=== PATIENT | male | born 1970 | race Asian ===

== ENCOUNTER → 2016-05-21 | Outpatient (CLI) | payer BC ==
[~2016-05-21] MED LIST: AMLO-110 PO; ASCO500C43 PO; ASPI81TA28 PO; ATOR-24 PO; CARV3.122 PO; DCL/500 PO; FERR1TAB23 PO; INSDGIPEN SC; LEVO150T9 PO; LEVO175T3 PO; LOSA1TAB PO; MULT-506 PO; NVLGI/PEN SQ; PREG1CAP28 PO; PRT/20 PO; [UNRECOGNIZED DRUG - CODE] PO
--- NOTE | 2016-05-21 10:18 | DIAGNOSTIC IMAGING REPORT ---
ULTRASOUND TESTES AND SCROTUM CLINICAL HISTORY: Unspecified testicular lesion. COMPARISON STUDY: No priors. TECHNIQUE: Real-time, grayscale, and color Doppler sonography of the testes and scrotum is performed. Images are reviewed in the transverse and longitudinal planes. FINDINGS: The testes are atrophic and heterogeneous in echotexture. The right testis measures 1.9 x 1.1 x 1.7 cm and the left testis measures 2.1 x 1.0 x 1.7 cm. A 3 mm cystic focus is seen either within the right testis. No intratesticular mass is seen. Testicular blood flow is normal and symmetric. Normal Doppler waveforms are identified in both testes. The epididymal heads appear prominent. The right epididymal head measures 0.7 cm in length and the left epididymal head measures 0.8 cm in length. There is a 2 mm right epididymal head cyst. No varicocele or hydrocele is seen. IMPRESSION: 1. The testes appear atrophic and heterogeneous. 2. No testicular mass lesion is seen. A 3 mm low suspicion cystic focus is identified within the right testis. A precautionary 6 month follow-up examination is recommended for reassessment. Electronically signed by: Rafiq Davila M.D. 05/21/2016 10:16 AM Dictated Date/Time: 05/21/2016 10:11 AM
== END | disposition home or self-care (01) ==
LOC: C.ULTR 09:23
PROVIDERS: ATTEND Internal Medicine
DX: N50.9 Disorder of male genital organs, unspecified (principal)

== ENCOUNTER 2016-10-27 23:39 | Emergency (ER) | payer BC ==
[~2016-10-27] VITALS: Ht 160 cm; Wt 57.0 kg
[2016-10-27 23:46] VITALS: TEMP 36.6; Ht 160 cm; Wt 57.0 kg
[2016-10-28] MEDS ORDERED: ACETAMINOPHEN 500 MG TAB PO STA (00:45)
[2016-10-28] MEDS ORDERED: CARV3.122 PO (00:56)
[2016-10-28] MEDS ORDERED: [UNRECOGNIZED DRUG - CODE] PO (00:56)
[2016-10-28] MEDS ORDERED: ATOR-24 PO (00:56)
[2016-10-28] MEDS ORDERED: INSDGIPEN SC (00:56)
[2016-10-28] MEDS ORDERED: LOSA1TAB PO (00:56)
[2016-10-28] MEDS ORDERED: AMLO-110 PO (00:56)
[2016-10-28] MEDS ORDERED: PREG1CAP28 PO (00:56)
[2016-10-28] MEDS ORDERED: PRT/20 PO (00:56)
[2016-10-28] MEDS ORDERED: FERR1TAB23 PO (00:57)
[2016-10-28] MEDS ORDERED: MULT-506 PO (00:57)
[2016-10-28] MEDS ORDERED: ASCO500C43 PO (00:57)
[2016-10-28] MEDS ORDERED: ASPI81TA28 PO (00:57)
[2016-10-28 01:08] VITALS: BP 156/94; PULSE 68; O2SAT 99
[2016-10-28] MEDS ORDERED: DCL/500 PO (01:21)
[2016-10-28] MEDS ORDERED: NVLGI/PEN SQ (01:21)
[2016-10-28] MEDS ORDERED: LEVO150T9 PO (01:22)
[2016-10-28] MEDS ORDERED: LEVO175T3 PO (01:22)
--- NOTE | 2016-10-28 01:49 | EMERGENCY ROOM VISIT NOTE ---
History Report prepared by Nasiriballison: Cruzito Briceno Under the Supervision of: Dr. Rachel Pritchett M.D. First contact with patient: 23:46 Chief Complaint: FALL Stated Complaint: FALL/RIB PAIN History of Present Illness The patient is a 46 year old male who presents to the Emergency Room with complaints of constant left rib pain s/p fall occurring shortly prior to arrival. He states that he slipped on a stair and fell backwards onto a concrete surface. He states that he landed on his left side and left elbow. The patient did not hit his head or lose consciousness. He rates his current pain as a 5/10 in severity. His pain is worsened with breathing and movement. The patient denies any shortness of breath, nausea, vomiting, chest pain, abdominal pain, or palpitations. He is on aspirin, but denies any other blood thinner use. He has a pacemaker in his left lower chest and is unsure if he hit his area during the fall. Source of History: patient Onset: Shortly prior to arrival Position: other (left rib) Symptom Intensity: 5/10 Timing: constant Modifying Factors (Worsening): breathing, movement Associated Symptoms: No chest pain, No SOB, No nausea, No vomiting, No abdominal pain Review of Systems See HPI for pertinent positives & negatives. A total of 10 systems reviewed and were otherwise negative. Past Medical & Surgical Medical Problems: (1) Bone cancer (2) Endocarditis (3) Renal disease (4) Thyroid cancer (5) Type II diabetes mellitus Surgical Problems: (1) Aortic valve replaced (2) H/O mitral valve replacement Family History No pertinent family history stated. Social History Smoking Status: Never Smoker Smokeless Tobacco Use: No Alcohol Use: none Drug Use: none Marital Status: Housing Status: lives with family Occupation Status: employed Current/Historical Medications Scheduled Amlodipine (Norvasc), 5 MG PO DAILY Ascorbic Acid (Vitamin C 500 mg), 500 MG PO DAILY Aspirin (Aspirin Ec), 81 MG PO DAILY Atorvastatin (Lipitor), 40 MG PO DAILY Carvedilol (Coreg), 3.125 MG PO BID Dicloxacillin Sodium (Dynapen), 500 MG PO BID Ferrous Sulfate (Iron), 325 MG PO DAILY Insulin Aspart (Novolog Flexpen), UNITS SQ AC Insulin Glargine (Lantus Solostar), 1 UNIT SC HS Levothyroxine Sodium (Levothyroxine Sodium), 150 MCG PO Q2D Levothyroxine Sodium (Levothyroxine Sodium), 175 MCG PO Q2D Losartan Potassium (Cozaar), 25 MG PO BID Multivitamin (Multivitamin), 1 TAB PO DAILY Pantoprazole (Protonix), 20 MG PO DAILY Pregabalin (Lyrica), 75 MG PO BID Sevelamer Hydroch (Renagel), 400 MG PO TIDM Allergies Coded Allergies: Cefazolin (Verified Allergy, Unknown, HIVES, 10/28/16) Cephalexin (Verified Allergy, Unknown, GI SYMPTOMS, 10/28/16) Physical Exam Vital Signs Date Time Temp Pulse Resp B/P (MAP) Pulse Ox O2 Delivery O2 Flow Rate FiO2 10/28/16 01:08 68 20 156/94 99 Room Air 10/27/16 23:46 36.6 69 20 178/85 100 Room Air Physical Exam Vital signs reviewed. General: Chronically ill-appearing male, in no significant distress. HEENT: No scleral icterus, PERRLA, neck supple. Atraumatic. Cardiovascular: Regular rate and rhythm, no extra sounds. Pulmonary: Clear to auscultation bilaterally, normal work of breathing. Abdomen: Soft, mild LUQ abdominal tenderness, nondistended, positive bowel sounds. Musculoskeletal: No peripheral edema. Tender over the left ribs. Splinting with deep inspiration. Small ecchymotic area to the left upper chest along the mid- axillary line. Neurologic: Patient awake alert and oriented x 3 Skin: Warm, dry, no rash Medical Decision & Procedures ER Provider Diagnostic Interpretation: US results per statrad and my review. US OTHER - limited - luq: Limited imaging of the left hemiabdomen secondary to bowel gas and rib shadowing The spleen measures up to 8.7 cm. No splenic injury identified. The left kidney measures up to 9 cm. No kidney injury identified. Chest/Rib X-ray interpreted by me: No pneumothorax. Pacemaker in place. No obvious displaced rib fracture identified. Medications Administered Medications (Trade) Dose Ordered Sig/Moo Route Start Time Stop Time Status Last Admin Dose Admin Acetaminophen (Tylenol Tab) 1,000 mg NOW STAT PO 10/28/16 00:45 10/28/16 00:47 DC 10/28/16 00:50 1,000 MG ED Course 2351: Past medical records reviewed. The patient was evaluated in room A3. A complete history and physical examination was performed. 0045: Ordered Tylenol Tab 1000 mg PO. 0145: Upon reevaluation, the patient appeared to have improvement of her symptoms. I discussed findings with her. She verbalized agreement of the treatment plan. The patient was discharged home. Medical Decision DDx: Intracranial injury, cervical spine injury, intrathoracic injury, intra- abdominal injury, musculoskeletal injury. This pt was evaluated and appeared to be in no distress. Pt declined pain medication initially. CXR was performed and to my interpretation is negative. US of LUQ is negative for FF. Pt examines as a rib contusion/fracture. He has multiple medical problems. Patient was given Tylenol 1000 mg orally for continued pain. He was discharged with an incentive spirometer. He will follow -up with his physician this week for reevaluation. Patient was advised to return to the ER for worsening of symptoms or any medical concerns. Medication Reconcilliation Current Medication List: was personally reviewed by me Blood Pressure Screening Patient's blood pressure: Elevated blood pressure Blood pressure disposition: Elevated BP felt to be situational, Referred to PCP Impression Primary Impression: Fall (on) (from) other stairs and steps, initial encounter Additional Impression: Rib pain on left side Scribe Attestation The scribe's documentation has been prepared under my direction and personally reviewed by me in its entirety. I confirm that the note above accurately reflects all work, treatment, procedures, and medical decision making performed by me. Departure Information Dispostion Home / Self-Care Referrals Berny Shrestha MD (PCP) Forms HOME CARE DOCUMENTATION FORM, IMPORTANT VISIT INFORMATION Patient Instructions My [facility] Additional Instructions Diagnosis: Rib pain, contusion versus nondisplaced fracture Tylenol 1000 mg every 6 hours as needed for pain. Incentive spirometer 10 times every hour while awake. Follow-up with your physician this week for reevaluation. Return to the ER for uncontrolled pain, fever, shortness of breath or any medical concerns. Problem Qualifiers
--- NOTE | 2016-10-28 07:10 | DIAGNOSTIC IMAGING REPORT ---
LEFT RIBS UNILATERAL WITH PA CHEST CLINICAL HISTORY: 46 years-old Male presenting with L rib pain after fall. TECHNIQUE: PA view of the chest and frontal and oblique views of the left ribs were obtained. COMPARISON: None. FINDINGS: Median sternotomy wires and pacer with epicardial leads noted. Left lung and pleural space clear. No displaced rib fracture. Left upper quadrant normal. IMPRESSION: No displaced rib fracture. Electronically signed by: Cameron Putnam M.D. 10/28/2016 7:09 AM Dictated Date/Time: 10/28/2016 7:07 AM
--- NOTE | 2016-10-28 07:13 | DIAGNOSTIC IMAGING REPORT ---
ABDOMEN LIMITED (US) CLINICAL HISTORY: Left upper quadrant pain fall, splenic/ renal bleeding COMPARISON STUDY: None. FINDINGS: Real-time sonographic imaging of the left upper quadrant was performed. The visualized kidney and spleen appear unremarkable. No splenic fluid collections. Of note, the spleen and kidney are slightly obscured by overlying bowel gas and ribs. No fluid collection within the left upper quadrant. No masses. IMPRESSION: No sonographic abnormality within the left upper quadrant. Electronically signed by: Greyson Castillo M.D. 10/28/2016 7:12 AM Dictated Date/Time: 10/28/2016 7:11 AM
== END 2016-10-28 01:51 | disposition home or self-care (01) ==
LOC: EDBD 23:39 → C.EDA 23:41
DX: R07.81 Pleurodynia (principal); W10.8XXA Fall (on) (from) other stairs and steps, initial encounter; E11.9 Type 2 diabetes mellitus without complications; N18.9 Chronic kidney disease, unspecified; I38 Endocarditis, valve unspecified; Z95.2 Presence of prosthetic heart valve; Z85.850 Personal history of malignant neoplasm of thyroid; Z85.830 Personal history of malignant neoplasm of bone; Z79.4 Long term (current) use of insulin; Z79.82 Long term (current) use of aspirin; Z79.899 Other long term (current) drug therapy; Z88.8 Allergy status to other drugs, medicaments and biological substances

== ENCOUNTER 2017-06-18 21:52 | Emergency (ER) | payer BC, OTHER ==
[~2017-06-18] VITALS: Ht 160 cm; Wt 57.0 kg
[2017-06-18 21:55] VITALS: TEMP 36.7; Ht 160 cm; Wt 57.0 kg
[2017-06-18] MEDS ORDERED: KETOROLAC TROMETHAMINE 30 MG/ML VIAL IV STA (22:21)
[2017-06-18] MEDS ORDERED: SODIUM CHLORIDE 0.9% 1000ML 1,000 ML IV ONE (22:30)
--- NOTE | 2017-06-18 22:58 | DIAGNOSTIC IMAGING REPORT ---
PELVIS 1 OR 2 VIEW ROUTINE, R FEMUR 2 VIEWS ROUTINE HISTORY: 47 years-old Male PELVIS AND RT HIP PAIN acute pelvis or right hip pain COMPARISON: Right knee radiographs 01/10/2016 TECHNIQUE: AP view of the pelvis with 2 views of the right femur FINDINGS: PELVIS: Mild degenerative changes about the left femoral acetabular joint. No pelvic fracture identified. Moderate degenerative changes about the pubic symphysis. Prosthetic right femur with prosthetic right acetabular component also noted. Surgical clips project over the right inguinal region. Dystrophic calcifications are seen medial to the right femur. No acute fracture, dislocation or evidence of hardware complication. Vascular calcifications of the central pelvis. Moderate stool volume of the imaged right hemicolon. FEMUR: Prosthetic femur redemonstrated with apparent mild muscular atrophy about the right thigh. Dystrophic calcifications are noted within the medial right upper thigh. Surgical clips are seen about the right thigh with extensive peripheral vascular disease.] Arthroplasty with partially imaged tibial stem. IMPRESSION: 1. No acute fracture or dislocation. 2. Right hip arthroplasty with prosthetic right femur and right knee arthroplasty. 3. Suggested muscular atrophy about the right thigh with multiple surgical clips and dystrophic calcifications. 4. Peripheral vascular disease. The above report was generated using voice recognition software. It may contain grammatical, syntax or spelling errors. Electronically signed by: Cheko Causey M.D. 06/18/2017 10:56 PM Dictated Date/Time: 06/18/2017 10:53 PM
[2017-06-18 23:10] LABS: BASO % 0.3 %; BASO ABS # 0.02 K/uL (0-0.2); EOS % 4.9 %; EOS ABS # 0.29 K/uL (0-0.5); HEMATOCRIT 23.1 % (42-52); HEMOGLOBIN 8.3 g/dL (14.0-18.0); IG# 0.01 K/uL (0.00-0.02); LYMPH % 6.5 %; LYMPH ABS # 0.38 K/uL (1.2-3.4); MEAN CELL VOLUME 88.5 fL (80-100); MEAN CORPUSCULAR HEMOGLOBIN 31.8 pg (25-34); MEAN CORPUSCULAR HGB CONC 35.9 g/dl (32-36); MEAN PLATELET VOLUME 9.9 fL (7.4-10.4); MONO % 5.8 %; MONO ABS # 0.34 K/uL (0.11-0.59); NEUT % 82.3 %; NEUT ABS # 4.85 K/uL (1.4-6.5); PLATELET COUNT 164 K/uL (130-400); RED CELL DISTRIBUTION WIDTH CV 13.3 % (11.5-14.5); RED CELL DISTRIBUTION WIDTH SD 43.4 fL (36.4-46.3); WHITE BLOOD COUNT 5.89 K/uL (4.8-10.8)
[2017-06-18 23:20] LABS: PTT PATIENT 33.6 SECONDS (21.0-31.0)
[2017-06-18 23:30] LABS: ALBUMIN 3.3 gm/dl (3.4-5.0); CALCIUM 8.1 mg/dl (8.5-10.1); CREATININE 4.03 mg/dl (0.60-1.40); POTASSIUM 3.5 mmol/L (3.5-5.1)
[2017-06-18 23:33] LABS: TOTAL PROTEIN 6.3 gm/dl (6.4-8.2)
[2017-06-18 23:50] VITALS: BP 152/83; PULSE 81; O2SAT 97
--- NOTE | 2017-06-19 21:51 | EMERGENCY ROOM VISIT NOTE ---
History First contact with patient: 22:11 Chief Complaint: HIP PAIN Stated Complaint: RT HIP PAIN History of Present Illness The patient is a 47 year old male who presents to the Emergency Room with complaints of right hip pain worsening over the past 1 day. 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 The patient has had 2 hip replacements as well as 14 or 15 "clean out" procedures following infection. The patient has been doing well for the past several years. None of these procedures have been performed in the [place] area. The patient has evidently seen Dr. Florian locally to establish, but not for any procedures. The patient does not report having fever or chills. He has been able to ambulate, but this does cause increased pain. He takes Tylenol for pain, and this seems to have helped. He rates his discomfort a 1/10 at rest and 5/10 with walking. No injury or trauma is known. No redness in the area is reported. Review of Systems More than 10 systems were reviewed and otherwise negative with the exception of history of present illness. Past Medical/Surgical History Medical Problems: (1) Bone cancer (2) Endocarditis (3) Renal disease (4) Thyroid cancer (5) Type II diabetes mellitus Surgical Problems: (1) Aortic valve replaced (2) H/O mitral valve replacement Family History No pertinent family history Social History Smoking Status: Never Smoker Alcohol Use: none Drug Use: none Marital Status: Housing Status: lives with family Occupation Status: employed Current/Historical Medications Scheduled Amlodipine (Norvasc), 5 MG PO DAILY Ascorbic Acid (Vitamin C 500 mg), 500 MG PO DAILY Aspirin (Aspirin Ec), 81 MG PO DAILY Atorvastatin (Lipitor), 40 MG PO DAILY Carvedilol (Coreg), 3.125 MG PO BID Dicloxacillin Sodium (Dynapen), 500 MG PO BID Ferrous Sulfate (Iron), 325 MG PO DAILY Insulin Aspart (Novolog Flexpen), UNITS SQ AC Insulin Glargine (Lantus Solostar), 2 UNIT SC HS Levothyroxine Sodium (Levothyroxine Sodium), 150 MCG PO Q2D Levothyroxine Sodium (Levothyroxine Sodium), 175 MCG PO Q2D Losartan Potassium (Cozaar), 25 MG PO BID Multivitamin (Multivitamin), 1 TAB PO DAILY Pantoprazole (Protonix), 20 MG PO DAILY Pregabalin (Lyrica), 75 MG PO BID Sevelamer Hydroch (Renagel), 400 MG PO TIDM Physical Exam Vital Signs Date Time Temp Pulse Resp B/P (MAP) Pulse Ox O2 Delivery O2 Flow Rate FiO2 06/18/17 23:50 81 18 152/83 97 Room Air 06/18/17 21:55 36.7 86 16 140/78 99 Room Air Physical Exam More than 10 systems were reviewed and otherwise negative with the exception of history of present illness. VITALS: Vitals are noted on the nurse's note and reviewed by myself. Vital signs stable. GENERAL: Well-developed, well-nourished, male, who is in no acute distress and resting comfortably. Patient is cooperative with the examination. NECK: Supple without nuchal rigidity. No lymphadenopathy. No thyromegaly. Cervical spine is nontender. HEART: Regular rate and rhythm with murmur LUNGS: Clear to auscultation bilaterally without wheezes, rales or rhonchi. No retractions or accessory muscle use. ABDOMEN: Positive normal bowel sounds x 4. Soft, nontender, without masses or organomegaly. No guarding or rebound tenderness. MUSCULOSKELETAL: No muscle atrophy, erythema, or edema noted. No reproducible tenderness is appreciated to the right hip. The patient has decreased range of motion to internal and external rotation. Elevating the right leg off the bed increases tenderness. Neurovascular status is intact distally. No tenderness of the back. No saddle paresthesias. NEURO: Patient was alert and oriented to person place and time. CN II through XII grossly intact. No focal neurological deficits. Medical Decision & Procedures ER Provider Diagnostic Interpretation: PELVIS 1 OR 2 VIEW ROUTINE, R FEMUR 2 VIEWS ROUTINE HISTORY: 47 years-old Male PELVIS AND RT HIP PAIN acute pelvis or right hip pain COMPARISON: Right knee radiographs 01/10/2016 TECHNIQUE: AP view of the pelvis with 2 views of the right femur FINDINGS: PELVIS: Mild degenerative changes about the left femoral acetabular joint. No pelvic fracture identified. Moderate degenerative changes about the pubic symphysis. Prosthetic right femur with prosthetic right acetabular component also noted. Surgical clips project over the right inguinal region. Dystrophic calcifications are seen medial to the right femur. No acute fracture, dislocation or evidence of hardware complication. Vascular calcifications of the central pelvis. Moderate stool volume of the imaged right hemicolon. FEMUR: Prosthetic femur redemonstrated with apparent mild muscular atrophy about the right thigh. Dystrophic calcifications are noted within the medial right upper thigh. Surgical clips are seen about the right thigh with extensive peripheral vascular disease.] Arthroplasty with partially imaged tibial stem. IMPRESSION: 1. No acute fracture or dislocation. 2. Right hip arthroplasty with prosthetic right femur and right knee arthroplasty. 3. Suggested muscular atrophy about the right thigh with multiple surgical clips and dystrophic calcifications. 4. Peripheral vascular disease. Laboratory Results 06/18/17 23:00 Red Blood Count 2.61, Mean Corpuscular Volume 88.5, Mean Corpuscular Hemoglobin 31.8, Mean Corpuscular Hemoglobin Concent 35.9, Mean Platelet Volume 9.9, Neutrophils (%) (Auto) 82.3, Lymphocytes (%) (Auto) 6.5, Monocytes (%) (Auto) 5.8, Eosinophils (%) (Auto) 4.9, Basophils (%) (Auto) 0.3, Neutrophils # (Auto) 4.85, Lymphocytes # (Auto) 0.38, Monocytes # (Auto) 0.34, Eosinophils # (Auto) 0.29, Basophils # (Auto) 0.02 06/18/17 23:00 Test 06/18/17 23:00 White Blood Count 5.89 K/uL (4.8-10.8) Red Blood Count 2.61 M/uL (4.7-6.1) Hemoglobin 8.3 g/dL (14.0-18.0) Hematocrit 23.1 % (42-52) Mean Corpuscular Volume 88.5 fL (80-100) Mean Corpuscular Hemoglobin 31.8 pg (25-34) Mean Corpuscular Hemoglobin Concent 35.9 g/dl (32-36) Platelet Count 164 K/uL (130-400) Mean Platelet Volume 9.9 fL (7.4-10.4) Neutrophils (%) (Auto) 82.3 % Lymphocytes (%) (Auto) 6.5 % Monocytes (%) (Auto) 5.8 % Eosinophils (%) (Auto) 4.9 % Basophils (%) (Auto) 0.3 % Neutrophils # (Auto) 4.85 K/uL (1.4-6.5) Lymphocytes # (Auto) 0.38 K/uL (1.2-3.4) Monocytes # (Auto) 0.34 K/uL (0.11-0.59) Eosinophils # (Auto) 0.29 K/uL (0-0.5) Basophils # (Auto) 0.02 K/uL (0-0.2) RDW Standard Deviation 43.4 fL (36.4-46.3) RDW Coefficient of Variation 13.3 % (11.5-14.5) Immature Granulocyte % (Auto) 0.2 % Immature Granulocyte # (Auto) 0.01 K/uL (0.00-0.02) Poikilocytosis PRESENT Erythrocyte Sedimentation Rate 23 mm/hr (0-14) Prothrombin Time 11.0 SECONDS (9.0-12.0) Prothromb Time International Ratio 1.0 (0.9-1.1) Activated Partial Thromboplast Time 33.6 SECONDS (21.0-31.0) Partial Thromboplastin Ratio 1.3 Anion Gap 11.0 mmol/L (3-11) Est Creatinine Clear Calc Drug Dose 18.4 ml/min Estimated GFR () 19.3 Estimated GFR (Non- 16.7 BUN/Creatinine Ratio 18.4 (10-20) Calcium Level 8.1 mg/dl (8.5-10.1) Total Bilirubin 0.3 mg/dl (0.2-1) Aspartate Amino Transf (AST/SGOT) 43 U/L (15-37) Alanine Aminotransferase (ALT/SGPT) 27 U/L (12-78) Alkaline Phosphatase 77 U/L (45-117) C-Reactive Protein 0.90 mg/dl (0-0.29) Total Protein 6.3 gm/dl (6.4-8.2) Albumin 3.3 gm/dl (3.4-5.0) Globulin 3.0 gm/dl (2.5-4.0) Albumin/Globulin Ratio 1.1 (0.9-2) ED Course Physical exam and history were performed. Nursing notes, EMR, and Medication List were personally reviewed. Patient appears to have concern for right hip infection as he is having increased pain the past 1-2 days. The patient does not have obvious signs of infection on examination, but has had multiple infections in the past. Blood work was drawn and labs are obtained. X-rays were performed. I offered the patient pain medication, but he declined. The patient's blood work is as above and was reviewed. He does not have a significantly elevated white blood cell count. 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 Evidently the patient has chronic kidney disease and will be starting Procrit in the near future. Additionally his creatinine is elevated, but this was also expected. The patient's inflammatory markers are only minimally elevated. X-rays are as above and reviewed by myself and radiology showing no acute process. He certainly has chronic findings consistent with past surgeries. I discussed options of care with the patient, and he is very comfortable with going home. This seems reasonable as I do not appreciate a distinct infection. He is able to ambulate, and is very comfortable with taking Tylenol at home. I do recommend that he follow-up with [facility] orthoped[facility] by telephone tomorrow to ensure improvement of symptoms. The patient was otherwise went back to the ER with any new, worsening, or concerning symptoms. The chart was completed utilizing [employer] Speech Voice Recognition Software. Grammatical errors, random word insertions, pronoun errors, and incomplete sentences are an occasional consequence of this system due to software limitations, ambient noise, and hardware issues. Any formal questions or concerns about the content, text, or information contained within the body of this dictation should be directly addressed to the provider for clarification. . Medical Decision Differential diagnosis includes, but is not limited to: Sprain, strain, fracture , dislocation, subluxation, contusion, chronic pain, infection, and others Impression Primary Impression: Right hip pain Departure Information Dispostion Home / Self-Care Condition GOOD Referrals Suman Florian M.D. Forms WORK / SCHOOL INSTRUCTIONS, HOME CARE DOCUMENTATION FORM, IMPORTANT VISIT INFORMATION Patient Instructions My [facility] Additional Instructions You were seen and evaluated today on an emergency basis only. This is not a substitute for, or an effort to provide, complete comprehensive medical care. It is not possible to recognize and treat all injuries or illnesses in a single emergency department visit. For this reason it is recommended that you followup with [facility] orthopedics, Dr. lForian's office, in the next 1-2 days for a recheck of your condition. Your hemoglobin today was 8.3. 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 Continue Tylenol 1000 mg every 6-8 hours as needed for pain control. Take every precaution to prevent falling Monitor for redness in the area or fever. If this occurs please return to the ER. You are welcome to return to the emergency department anytime with new, worsening, or concerning symptoms.
== END 2017-06-19 00:15 | disposition home or self-care (01) ==
LOC: C.EDB 21:54 → C.EDC 06-19 00:15
DX: M25.551 Pain in right hip (principal); Z96.641 Presence of right artificial hip joint; Z85.830 Personal history of malignant neoplasm of bone; Z85.850 Personal history of malignant neoplasm of thyroid; E11.9 Type 2 diabetes mellitus without complications; I38 Endocarditis, valve unspecified; Z79.82 Long term (current) use of aspirin; Z79.4 Long term (current) use of insulin; Z79.899 Other long term (current) drug therapy

== ENCOUNTER 2021-03-03 13:52 | Inpatient (IN) ==
--- NOTE | 2021-03-03 15:03 | Emergency Department Note ---
Impression & Plan Syncope, Acute hypotension, Peritoneal dialysis catheter in place, Hypokalemia ED Provider Note NAME: TROY TAY AGE: 51 SEX: M : 1970 ARRIVES VIA: Ambulance INFORMANT: Patient ED PROVIDER(S): Donny Stevenson DO CHIEF COMPLAINT: syncope x2-3 HPI: Patient is a 51-year-old male on PD dialysis with rectal cancer and spots within the lungs currently undergoing chemo presents to the ER for 2 episodes of syncope today and yesterday one episode of near syncope. He checked his blood pressure this morning and it was low in the 70s. Following the 2 episodes of syncope called EMS and was brought in. He denies any headache or change in vision. He did not fall or hit her head or neck. Denies any belly pain, nausea, vomiting, or diarrhea. No chest pain or shortness of breath. No other exacerbating or remitting factors. Last transfusion was about 1 to 2 weeks ago. ROS: See above HPI for pertinent positives & negatives. A total of 10 systems reviewed and were otherwise negative. PAST MEDICAL HISTORY:See Below PAST SURGICAL HISTORY:See Below FAMILY HISTORY:See Below SOCIAL HISTORY:See Below HOME MEDICATIONS:See Below ALLERGIES:See Below VITALS:See Below PHYSICAL EXAMINATION: GENERAL: Sitting up in bed, alert, chronically ill-appearing, disheveled EYE EXAM: normal conjunctiva. PERRL and EOM's grossly intact. OROPHARYNX: no exudate, no erythema, lips, buccal mucosa, and tongue normal and mucous membranes are moist NECK: supple, no nuchal rigidity, no adenopathy, non-tender LUNGS: Clear to auscultation. Normal chest wall mechanics HEART: no murmurs, S1 normal and S2 normal ABDOMEN: abdomen soft, non-tender, normo-active bowel sounds, no masses, no rebound or guarding. Catheter in place without any surrounding redness. UPPER EXTREMITIES: upper extremities are grossly normal. LOWER EXTREMITIES: Pitting edema in the bilateral lower extremities. Left is larger than right chronic per patient NEURO EXAM: Normal sensorium, cranial nerves II-XII grossly intact, normal speech, no gross weakness of arms, no gross weakness of legs. MEDICAL DECISION MAKING: Patient is a 51-year-old male with past medical history end-stage renal disease on dialysis with a pacemaker, rectal cancer currently receiving therapy the presents the ER for 2 syncopal episodes today. He denies any headache or change in vision. He does do PD nightly. IV was established blood was obtained. Labs show no significant leukocytosis. Mild anemia 10. Platelets were low at 61 consistent with previous at 91. BMP with mild hypokalemia at 3.1. Creatinine was elevated 8.8. Troponin was tactile at 0.6 which I favor secondary to chronic kidney disease. TSH was elevated and free T4 was normal. Patient was updated bedside. CT head was negative. Chest x-ray was not significant change from previous. Venous Doppler shows likely a questionable chronic DVT. Will defer to the hospitalist. Patient was updated bedside. Discussed with hospitalist for further evaluation did order interrogation of the pacer but this did not occur while in the ER. Triage Nursing notes reviewed. Limited review of prior medical records performed Vital Signs: reviewed and remarkable for hypotension Differential diagnosis: Differential diagnosis includes etiologies such as vasovagal event, infection, hypoglycemia, electrolyte abnormalities, cardiac sources, intracerebral event, toxicologic, neurologic, as well as others were entertained. ER treatment provided: See below Diagnostics interpreted by me: ECG: The atrial sensed ventricular paced rate 86 Left axis QTC 648 Cardiac Monitoring: An order was placed for continuous cardiac monitoring. The monitor shows a rate of 85 with paced rhythm. Laboratory studies: As stated above and show below. 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 Bower) GERD (gastroesophageal reflux disease) History of basal cell carcinoma (BCC) History of DVT (deep vein thrombosis) RLE (1988) - postop, previously treated with AC History of osteosarcoma 1984 s/p surgery/chemo History of valvular heart disease s/p s/p AVR and MVR (2013) r/t endocarditis HTN (hypertension) Hx of papillary thyroid carcinoma 2012 s/p surgery/radiation Mixed hyperlipidemia Multiple pulmonary nodules determined by computed tomography of lung Pacemaker Implanted 2013 ([facility]), [employer], Follows with Dr. Person Peritoneal dialysis catheter in place Pleural effusion Per pulmonary office visit (12/18/20): "small right pleural effusion which is stable dating back to 07/09/2020. I evaluated the effusion with an ultrasound in the office. The effusion is small and free-flowing. Etiology is unclear, but given his overall volume overloaded appearing state, this can be related to his ESRD.. Pleural effusions can be seen in patients who are on peritoneal dialysis. Should this effusion increase in size, we can consider performing a thoracentesis for diagnostic and therapeutic purposes." Pulmonary hypertension Severe pulmonary HTN (68mmhg) per 05/2020 echo Rectal cancer Surgical History (Updated 03/03/21 @ 19:02 by HOMA He) Aortic valve replaced (2013) [facility] - due to endocarditis H/O mitral valve replacement (2013) [facility] - due to endocarditis History of appendectomy History of basal cell carcinoma (BCC) excision History of cardiac catheterization Remote ([facility]) > no stents History of cataract surgery R/L History of colonoscopy (07/04/20) Biopsy Dr. David Krueger at [facility] History of endoscopy (08/13/20) Dr. Adan Welch [place] [facility] [place] History of joint replacement Right hip replacement + right knee replacement (placed during initial dx of osteosarcoma in 1984); these subsequently got infected in 2011 and had revisions History of surgery (1984) Right Femur related to Osteosarcoma History of thyroidectomy History of wisdom tooth extraction Port-A-Cath in place (12/25/19) Access port placement and fluoroscopy with IV contrast. Dr. Yao 12/24/20 Status post debridement Multiple for Right Thigh Family History Father T2DM (type 2 diabetes mellitus) Mother Breast cancer, Onset Age: 60 Brother No problems noted. Sister No problems noted. 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 [employer] How many Children do You have: 0 Feels Safe at Home: Yes Childhood Exposure to Second-Hand Smoke: No Diet Comment: Renal Diet caffeine: Yes (coffee 1 cup per day) during the past year weight has: remained stable Dental Care, Regularly: Yes Physical Activity Frequency: Does not Exercise Assistive Devices: Cane Allergies Allergies Allergy/AdvReac Type Severity Reaction Status Date / Time cefazolin Allergy Intermediate Hives Verified 03/03/21 20:02 fosaprepitant Allergy Chest Pain Verified 03/03/21 20:02 cephalexin AdvReac Mild GI symptoms Verified 03/03/21 20:02 Home Meds Home Medications Medication Instructions Recorded Confirmed atorvastatin 40 mg tablet 40 mg PO HS 01/29/18 03/03/21 levothyroxine 150 mcg tablet 150 mcg PO Q2D 01/29/18 03/03/21 levothyroxine 175 mcg tablet 175 mcg PO Q2D 01/29/18 03/03/21 pantoprazole 40 mg tablet,delayed 40 mg PO QAM 01/29/18 03/03/21 release (Protonix) pregabalin 75 mg capsule 75 mg PO QAM 01/29/18 03/03/21 pregabalin 75 mg capsule 150 mg PO HS 01/29/18 03/03/21 cholecalciferol (vitamin D3) 25 1,000 unit PO QAM 03/29/18 03/03/21 mcg (1,000 unit) tablet (Vitamin D3) vitamin B complex-vitamin C-folic 1 tab PO QAM 10/09/19 03/03/21 acid 0.8 mg tablet (Renal Vitamin) dicloxacillin 500 mg capsule 500 mg PO BID 08/09/20 03/03/21 psyllium husk 0.4 gram capsule 1.6 g PO HS cap 10/29/20 03/03/21 (Metamucil) docusate sodium 100 mg capsule 100 mg PO BID cap 11/06/20 03/03/21 (Colace) prochlorperazine maleate 10 mg 10 mg PO Q6H PRN 11/06/20 03/03/21 tablet (Compazine) aspirin 81 mg tablet,delayed 81 mg PO QAM 12/14/20 03/03/21 release brimonidine 0.2 %-timolol 0.5 % 1 drp OPL BID 12/14/20 03/03/21 eye drops (Combigan) sucroferric oxyhydroxide 500 mg 500 mg PO TIDM 12/14/20 03/03/21 chewable tablet (Velphoro) Previous Rx's Medication Instructions Recorded hydrocodone 5 mg-acetaminophen 325 1 tab PO Q4H PRN #20 tab 12/24/20 mg tablet Results & Data (ED) Vital Signs Vital Signs - 24 hr 03/03/21 14:28 03/03/21 14:39 03/03/21 15:00 Temperature 36.9 C Temperature Source Temporal Artery Scan Pulse Rate - Lying Pulse Rate - Sitting Pulse Rate - Standing Pulse Rate 86 Pulse Rate from SpO2 Sensor Respiratory Rate 20 Respiratory Effort / Characteristics Non-Labored Respiratory Depth Normal Blood Pressure - Lying Blood Pressure - Sitting Blood Pressure- Standing Blood Pressure 95/55 L 121/65 Blood Pressure Mean 68 83 Pulse Oximetry 96 94 Oxygen Delivery Method Room Air Room Air Oxygen Flow Rate Sepsis Recent Fever Within 48 Hours No Sepsis New/Unexplained Change in Mental Status N/A Sepsis Action Taken by Nursing No Action Required 03/03/21 15:10 03/03/21 15:20 03/03/21 15:30 Temperature Temperature Source Pulse Rate - Lying Pulse Rate - Sitting Pulse Rate - Standing Pulse Rate 85 85 87 Pulse Rate from SpO2 Sensor 85 86 87 Respiratory Rate 13 10 L 21 Respiratory Effort / Characteristics Respiratory Depth Blood Pressure - Lying Blood Pressure - Sitting Blood Pressure- Standing Blood Pressure 147/81 H Blood Pressure Mean 103 Pulse Oximetry 88 L 100 100 Oxygen Delivery Method Room Air Nasal Cannula Oxygen Flow Rate 3 Sepsis Recent Fever Within 48 Hours Sepsis New/Unexplained Change in Mental Status Sepsis Action Taken by Nursing 03/03/21 16:00 03/03/21 16:01 03/03/21 16:28 Temperature Temperature Source Pulse Rate - Lying Pulse Rate - Sitting Pulse Rate - Standing Pulse Rate 88 99 H Pulse Rate from SpO2 Sensor 88 92 H Respiratory Rate 32 H 21 Respiratory Effort / Characteristics Respiratory Depth Blood Pressure - Lying Blood Pressure - Sitting Blood Pressure- Standing Blood Pressure 135/67 Blood Pressure Mean 89 Pulse Oximetry 100 100 Oxygen Delivery Method Nasal Cannula Oxygen Flow Rate 2 Sepsis Recent Fever Within 48 Hours Sepsis New/Unexplained Change in Mental Status Sepsis Action Taken by Nursing 03/03/21 16:30 03/03/21 17:00 03/03/21 17:10 Temperature Temperature Source Pulse Rate - Lying Pulse Rate - Sitting Pulse Rate - Standing Pulse Rate 87 Pulse Rate from SpO2 Sensor 89 87 Respiratory Rate 15 13 Respiratory Effort / Characteristics Respiratory Depth Blood Pressure - Lying Blood Pressure - Sitting Blood Pressure- Standing Blood Pressure 133/63 123/70 Blood Pressure Mean 86 87 Pulse Oximetry 100 100 Oxygen Delivery Method Oxygen Flow Rate Sepsis Recent Fever Within 48 Hours Sepsis New/Unexplained Change in Mental Status Sepsis Action Taken by Nursing 03/03/21 17:30 03/03/21 17:34 03/03/21 17:35 Temperature Temperature Source Pulse Rate - Lying Pulse Rate - Sitting Pulse Rate - Standing Pulse Rate 87 Pulse Rate from SpO2 Sensor 88 Respiratory Rate 20 Respiratory Effort / Characteristics Respiratory Depth Blood Pressure - Lying Blood Pressure - Sitting Blood Pressure- Standing Blood Pressure 141/70 H 134/67 128/68 Blood Pressure Mean 93 89 88 Pulse Oximetry 100 Oxygen Delivery Method Oxygen Flow Rate Sepsis Recent Fever Within 48 Hours Sepsis New/Unexplained Change in Mental Status Sepsis Action Taken by Nursing 03/03/21 17:36 03/03/21 17:38 03/03/21 18:00 Temperature Temperature Source Pulse Rate - Lying 86 Pulse Rate - Sitting 84 Pulse Rate - Standing 87 Pulse Rate Pulse Rate from SpO2 Sensor Respiratory Rate Respiratory Effort / Characteristics Respiratory Depth Blood Pressure - Lying 134/67 Blood Pressure - Sitting 128/68 Blood Pressure- Standing 126/58 L Blood Pressure 126/58 L 139/69 Blood Pressure Mean 80 92 Pulse Oximetry Oxygen Delivery Method Oxygen Flow Rate Sepsis Recent Fever Within 48 Hours Sepsis New/Unexplained Change in Mental Status Sepsis Action Taken by Nursing Laboratory Data Result diagrams: 03/03/21 14:39 03/03/21 14:50 Lab Results 03/03/21 03/03/21 03/03/21 Range/Units 14:39 14:50 14:50 WBC 9.14 (4.8-10.8) K/uL RBC 3.18 L (4.7-6.1) M/uL Hgb 10.4 L (14.0-18.0) g/dL Hct 32.1 L (42-52) % MCV 100.9 H (80-100) fL MCH 32.7 (25-34) pg MCHC 32.4 (32-36) g/dL RDW Std Deviation 79.2 H (36.4-46.3) fL RDW Coeff of Hui 22.5 H (11.5-14.5) % Plt Count 61 L (130-400) K/uL Immature Gran % (Auto) 0.7 % Neut % (Auto) 80.6 % Lymph % (Auto) 6.7 % [place] % (Auto) 7.3 % Eos % (Auto) 4.2 % Baso % (Auto) 0.5 % Neut # (Auto) 7.37 H (1.4-6.5) K/uL Lymph # (Auto) 0.61 L (1.2-3.4) K/uL [place] # (Auto) 0.67 H (0.11-0.59) K/uL Eos # (Auto) 0.38 (0-0.5) K/uL Baso # (Auto) 0.05 (0-0.2) K/uL Immature Gran # (Auto) 0.06 H (0.00-0.02) K/uL Absolute Nucleated RBC 0.08 H (0-0) K/uL Nucleated RBC % (auto) 0.9 % Platelet Estimate Decreased L (Normal) Anisocytosis Present Ovalocytes 1+ PT 11.3 (9.0-12.0) Seconds INR 1.1 (0.9-1.1) APTT 62.7 H* (21.0-31.0) Seconds PTT Ratio 2.4 Sodium 129 L (136-145) mmol/L Potassium 3.1 L (3.5-5.1) mmol/L Chloride 91 L (98-107) mmol/L Carbon Dioxide 25 (21-32) mmol/L Anion Gap 13.0 H (3-11) BUN 40 H (7-18) mg/dl Creatinine 8.88 H* (0.6-1.4) mg/dl Est Cr Clr Drug Dosing Not Reportable Est GFR ( Amer) 7.2 ml/min Est GFR (Non-Af Amer) 6.2 ml/min BUN/Creatinine Ratio 4.5 L (10-20) Glucose 258 H (70-99) mg/dl Calcium 6.9 L (8.5-10.1) mg/dl Magnesium 1.8 (1.8-2.4) mg/dl Total Bilirubin 0.4 (0.2-1) mg/dl AST 32 (15-37) U/L ALT 34 (12-78) Alkaline Phosphatase 101 (45-117) U/L Troponin I 0.619 H* (0-0.045) ng/ml Total Protein 6.1 L (6.4-8.2) gm/dl Albumin 2.0 L (3.4-5.0) gm/dl Globulin 4.1 H (2.5-4.0) gm/dl Albumin/Globulin Ratio 0.5 L (0.9-2) Lipase 202 (73-393) U/L TSH 66.600 H (0.300-4.500) uIu/ml Free T4 0.85 (0.8-1.6) ng/dl SARS-CoV-2, RNA, NAAT (NEGATIVE) Blood Type Antibody Screen 03/03/21 03/03/21 Range/Units 15:01 17:40 WBC (4.8-10.8) K/uL RBC (4.7-6.1) M/uL Hgb (14.0-18.0) g/dL Hct (42-52) % MCV (80-100) fL MCH (25-34) pg MCHC (32-36) g/dL RDW Std Deviation (36.4-46.3) fL RDW Coeff of Hui (11.5-14.5) % Plt Count (130-400) K/uL Immature Gran % (Auto) % Neut % (Auto) % Lymph % (Auto) % [place] % (Auto) % Eos % (Auto) % Baso % (Auto) % Neut # (Auto) (1.4-6.5) K/uL Lymph # (Auto) (1.2-3.4) K/uL [place] # (Auto) (0.11-0.59) K/uL Eos # (Auto) (0-0.5) K/uL Baso # (Auto) (0-0.2) K/uL Immature Gran # (Auto) (0.00-0.02) K/uL Absolute Nucleated RBC (0-0) K/uL Nucleated RBC % (auto) % Platelet Estimate (Normal) Anisocytosis Ovalocytes PT (9.0-12.0) Seconds INR (0.9-1.1) APTT (21.0-31.0) Seconds PTT Ratio Sodium (136-145) mmol/L Potassium (3.5-5.1) mmol/L Chloride (98-107) mmol/L Carbon Dioxide (21-32) mmol/L Anion Gap (3-11) BUN (7-18) mg/dl Creatinine (0.6-1.4) mg/dl Est Cr Clr Drug Dosing Est GFR ( Amer) ml/min Est GFR (Non-Af Amer) ml/min BUN/Creatinine Ratio (10-20) Glucose (70-99) mg/dl Calcium (8.5-10.1) mg/dl Magnesium (1.8-2.4) mg/dl Total Bilirubin (0.2-1) mg/dl AST (15-37) U/L ALT (12-78) Alkaline Phosphatase (45-117) U/L Troponin I (0-0.045) ng/ml Total Protein (6.4-8.2) gm/dl Albumin (3.4-5.0) gm/dl Globulin (2.5-4.0) gm/dl Albumin/Globulin Ratio (0.9-2) Lipase (73-393) U/L TSH (0.300-4.500) uIu/ml Free T4 (0.8-1.6) ng/dl SARS-CoV-2, RNA, NAAT NEGATIVE (NEGATIVE) Blood Type A Positive Antibody Screen NEGATIVE Administered Medications Lactated Ringer's (Lr) 1,000 mls @ 90 mls/hr IV .[id number] ONE Stop: 03/04/21 05:20 Last Admin: 03/03/21 19:02 Dose: 90 mls/hr Documented by: [id number] Discontinued Medications Potassium Chloride (Potassium Chloride 10 Meq Tabcr) 20 meq PO NOW STA Stop: 03/03/21 16:07 Last Admin: 03/03/21 16:24 Dose: 20 meq Documented by: [id number] Imaging Data Radiologist's Impression: Chest X-Ray 03/03/21 15:00 SINGLE VIEW CHEST CLINICAL HISTORY: Syncope. FINDINGS: An AP, portable, upright chest radiograph is compared to study dated 12/24/2020 and correlated with chest CT dated 12/11/2020. A left subclavian infusion port is unchanged in position. The patient is status post midline sternotomy. Epicardial pacing leads are noted. The heart is enlarged noting atherosclerotic calcification of the thoracic aorta. The pulmonary vasculature is noncongested. A loculated pleural effusion is again seen at the right lung base with right basilar opacities. This is similar to previous. The right lung is clear. No pneumothorax is seen. The skeletal structures are osteopenic. There are healed right-sided rib fractures. Surgical clips project over the lower neck. IMPRESSION: 1. Cardiomegaly without radiographic evidence of congestive failure. 2. There is a loculated pleural effusion at the right lung base with associated right basilar opacities. This is similar in appearance to recent prior studies. 3. The left lung is clear. ACT 112: Negative or not required by law. Electronically signed by: Rafiq Davila M.D. 03/03/2021 4:15 PM Venous Doppler Study 03/03/21 16:06 ULTRASOUND LEFT LOWER EXTREMITY VENOUS CLINICAL HISTORY: Left lower extremity edema. COMPARISON STUDY: No priors. TECHNIQUE: Real-time, grayscale, and color Doppler sonography of the deep veins of the left lower extremity was performed from the inguinal crease to the calf. Compression and augmentation were utilized. FINDINGS: There is no sonographic evidence of acute deep venous thrombosis identified in the left lower extremity. There calcifications along the suarez of the mid superficial femoral vein and the popliteal vein which may represent trace chronic thrombus. The common femoral, superficial femoral, and popliteal veins are patent and normally compressible. The greater saphenous vein and the profunda femoris vein at the junction with the common femoral vein are clear. The visualized calf veins are patent. A complex popliteal cyst measures 5.3 x 1.6 x 3.2 cm per IMPRESSION: 1. There is no sonographic evidence of acute deep venous thrombosis identified in the left lower extremity. 2. Calcifications along the wall of the mid superficial femoral vein and the popliteal vein may represent trace chronic thrombus. 3. Complex popliteal cyst. ACT 112: Negative or not required by law. Electronically signed by: Rafiq Davila M.D. 03/03/2021 6:[address] 03/03/21 18:05 CT SCAN OF THE BRAIN WITHOUT IV CONTRAST CLINICAL HISTORY: Syncope. COMPARISON STUDY: No priors. TECHNIQUE: Unenhanced axial CT scan of the brain is performed from the vertex to the skull base. A dose lowering technique was utilized adhering to the principles of ALARA. CT DOSE: 537.48 mGy.cm FINDINGS: Brain parenchyma: There are age-advanced involutional changes noting mild subcortical and periventricular microangiopathic change. There is no hemorrhage, mass effect, or evidence of acute territorial ischemia by CT criteria. Anderson- white matter differentiation is preserved. No extra-axial fluid collection is seen. Ventricles, sulci, cisterns: Prominent secondary to involutional change. Intracranial vasculature: There is atherosclerotic calcification of the cavernous carotid and vertebral arteries. Calvarium: Unremarkable. Sinuses and mastoids: The visualized paranasal sinuses are clear. The mastoid air cells are well pneumatized. Orbits: The bony orbits are grossly intact. IMPRESSION: There is no hemorrhage, mass effect, or evidence of acute territorial ischemia by CT criteria. ACT 112: Negative or not required by law. Electronically signed by: Rafiq Davila M.D. 03/03/2021 7:33 PM Discharge Plan Visit Data Chief Complaint: Syncope ED Provider: Donny Stevenson Discharge Problem: Syncope, Acute hypotension, Peritoneal dialysis catheter in place, Hypokalemia Discharge Problem: Syncope Qualifiers: Syncope type: unspecified Qualified Code(s): R55 - Syncope and collapse
[2021-03-03 15:10] LABS: Mean Corpuscular Hgb Conc 32.4 g/dL (32-36); Nucleated RBC # (auto) 0.08 K/uL (0-0); Nucleated RBC % (auto) 0.9 %
[2021-03-03 15:20] LABS: INR 1.1 (0.9-1.1); Partial Thromboplastin Ratio 2.4; Prothrombin Time 11.3 Seconds (9.0-12.0)
[2021-03-03 15:30] LABS: Anisocytosis Present; Basophils # (auto) 0.05 K/uL (0-0.2); Basophils % (auto) 0.5 %; Eosinophils # (auto) 0.38 K/uL (0-0.5); Eosinophils % (auto) 4.2 %; Hematocrit (blood only) 32.1 % (42-52); Hemoglobin 10.4 g/dL (14.0-18.0); Immature Granulocytes # (auto) 0.06 K/uL (0.00-0.02); Immature Granulocytes % (auto) 0.7 %; Lymphocytes # (auto) 0.61 K/uL (1.2-3.4); Lymphocytes % (auto) 6.7 %; Mean Corpuscular Hemoglobin 32.7 pg (25-34); Mean Corpuscular Volume 100.9 fL (80-100); Monocytes # (auto) 0.67 K/uL (0.11-0.59); Monocytes % (auto) 7.3 %; Neutrophils # (auto) 7.37 K/uL (1.4-6.5); Neutrophils % (auto) 80.6 %; Ovalocytes 1+; Platelet Count 61 K/uL (130-400); Platelet Estimate Decreased (Normal); RDW Coefficient of Variation 22.5 % (11.5-14.5); RDW Standard Deviation 79.2 fL (36.4-46.3); Red Blood Count 3.18 M/uL (4.7-6.1); White Blood Count 9.14 K/uL (4.8-10.8)
[2021-03-03 15:53] LABS: Partial Thromboplastin Time 62.7 Seconds (21.0-31.0)
[2021-03-03 15:59] LABS: Alanine Aminotransferase 34 (12-78); Albumin Globulin Ratio 0.5 (0.9-2); Alkaline Phosphatase 101 U/L (45-117); Aspartate Aminotransferase 32 U/L (15-37); BUN Creatinine Ratio 4.5 (10-20); Bilirubin,Total 0.4 mg/dl (0.2-1); Blood Urea Nitrogen 40 mg/dl (7-18); Calcium 6.9 mg/dl (8.5-10.1); Carbon Dioxide 25 mmol/L (21-32); Chloride 91 mmol/L (98-107); Globulin 4.1 gm/dl (2.5-4.0); Glucose 258 mg/dl (70-99); Lipase 202 U/L (73-393); Magnesium 1.8 mg/dl (1.8-2.4); Potassium 3.1 mmol/L (3.5-5.1); Sodium 129 mmol/L (136-145); Total Protein 6.1 gm/dl (6.4-8.2)
[2021-03-03 16:04] LABS: Est GFR (African American) 7.2 ml/min; Est GFR (Non-African American) 6.2 ml/min; Troponin I 0.619 ng/ml (0-0.045)
[2021-03-03] MEDS ORDERED: POTASSIUM CHLORIDE 10 MEQ TABCR PO STA (16:06)
[2021-03-03 16:15] LABS: T4 Free Thyroxine 0.85 ng/dl (0.8-1.6)
--- NOTE | 2021-03-03 16:16 | XRay Report ---
SINGLE VIEW CHEST CLINICAL HISTORY: Syncope. FINDINGS: An AP, portable, upright chest radiograph is compared to study dated 12/24/2020 and correla shayy with chest CT dated 12/11/2020. A left subclavian infusion port is unchanged in position. The pat ient is status post midline sternotomy. Epicardial pacing leads are noted. The heart is enlarged noti ng atherosclerotic calcification of the thoracic aorta. The pulmonary vasculature is noncongested. A loculated pleural effusion is again seen at the right lung base with right basilar opacities. This is similar to previous. The right lung is clear. No pneumothorax is seen. The skeletal structures are o steopenic. There are healed right-sided rib fractures. Surgical clips project over the lower neck. IMPRESSION: 1. Cardiomegaly without radiographic evidence of congestive failure. 2. There is a loculated pleural effusion at the right lung base with associated right basilar opaciti es. This is similar in appearance to recent prior studies. 3. The left lung is clear. ACT 112: Negative or not required by law. Electronically signed by: Rafiq Davila M.D. 03/03/2021 4:15 PM
[2021-03-03] MEDS ORDERED: LACTATED RINGER'S 1,000 ML IV ONE (18:14)
--- NOTE | 2021-03-03 18:38 | History & Physical Report ---
Date of Service March 03, 2021 Assessment & Plan (1) Syncope: Plan: Syncopal episodes x2- multiple etiologies at play here DDX: Hypovolemia vs. hypothyroidism vs. sepsis vs. cardiac vs. intracranial process - CT head- rule out mass/bleed/acute process - TSH 66 with free T4 of 0.85- likely contributing factor - Blood cultures x2 sets- no fevers and he states his peritoneal fluid is clear and he has been getting all his fluid back - Replete volume overnight x1 liter LR at 80ml/hour - Pacemaker interrogation pending - Does not sound like seizure activity - Verify Midodrine through [facility]- Replete his thyroid level- give some volume overnight, hold his peritoneal dialysis tonight- as he doesn't appear septic at this point will hold on empiric coverage with abx. (2) Hypothyroidism: Plan: S/P Thyroidectomy - on Synthroid at - home alternating 125mcg q2d and 150mcg every other 2 days - last available for our review is 2018 where this was 3- so appeared to be suppressed. - Acute illness/sepsis triggering ? vs. noncompliance ? - T4 250mcg IV now - maintenance ~100mcg IV daily if needing to continue - His temperature, NA, K, Glucose are within his normal range so doubt there is any component of adrenal insufficiency- hold on steroid - Will continue his Synthroid 175 mcg po daily - defer further to rounding team - Blood pressures are stable and diastolic is between 60-80 - Follow his platelet count - He is normothermic - Pacemaker as above- so not bradycardic (3) Elevated troponin I level: Plan: Troponin 0.619- he has a paced rhythm - He denies any symptoms of chest pain or dyspnea - Likely demand ischemia from hypotension, syncope - Trend Troponin I - ECHO in morning- as he has been having increased dyspnea with his anemia by review (4) CKD (chronic kidney disease), stage V: Plan: On peritoneal dialysis- states he restricts his oral fluid to 48 ounces per day - Hold peritoneal dialysis tonight as electrolytes are stable and clinically hypovolemic on exam - Nephrology consulted- Follows with [facility]aki (5) DM type 2 (diabetes mellitus, type 2): Plan: DM II- appears to be diet controlled - BG 258 on BMP- repeat 185 - Aspart sliding scale- no carb coverage at this time (6) Rectal cancer: Plan: Remains on chemotherapuetic agents - records are unavailable for review (7) Pleural effusion: Plan: chronic and small- no acute need for intervention (8) Anemia: Plan: Chronic with active chemo and renal failure (AOCD) - his last transfusion was last week - HGB now 10- ? Component of hemoconcentration- as he appears to get these drawn weekly and is normally at 8 - Follow, History of Present Illness Primary Care Provider: Berny Shrestha MD 51 YOM with past medical history of: Renal failure on peritoneal dialysis, pulmonary nodules, rectal cancer(receiving Xeloda ? 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 Patient comes to the [facility] today for complaints os syncopal episodes x2 this morning associated with hypotension with his home BP machine reportedly with SBP in the 70s. In the EMD the patient had routine labs drawn, CXR, and interrogation of his pacemaker. He was given 20MEq potassium PO by the EMD and The hospitalist service was then consulted for admission. Patient reports that he had 2 episodes reported to him from his of his eyes staring blankly and "bugging out" and then "passing out". First episode occurred while he was in bed this morning, he was then able to get up and go get breakfast and start his day. He states that he did not feel dizzy or more fatigued at that time. The second episode occurred while he was washing himself up at the sink and reports that he fell back into the chair that his had for him. Further questioning reveals that he ate Outback last night, did his dialysis and had period where his legs got shaky and he felt week and needed assistance to get to bed. He reports he took all his medications as normal and that he continues to take his Synthroid as well. His labs were notable for TSH of 66 with a T4 0.85, PTT 62.7 and BG of 258. He also has Troponin elevated to 0.619. Patient also requires occasional blood transfusions for his anemia and his last transfusion was last week he believes. His normal HGB levels that we have are 7-9 range, he is noted to be 10.4 today. His WBC are normally 3-6 and are also at 9 today. Patient denies any feeling of illness and has no recollection of his episodes from this morning. Patient will be admitted to PCU for monitoring and following his symptoms/labs. Will obtain CT scan of his head to rule out any intracranial process with his history of CA, will obtain blood cultures to rule out infection. Re-evaluate his PTT and his TSH now. Will provide gentle hydration overnight as he appears hemoconcentrated on his labs, trend his Troponin I. Hold his peritoneal dialysis tonight with hypotension, syncope, and clinically dry on exam. His lungs are clear and denies any chest pain or discomfort. His Interrogation of his pacer is pending at this time. If his TSH is truly 66- this may explain his syncope- his pacemaker could be masking his bradycardia appears as his TSH was normal range on his admission in 2018. As above blood culture for infection rule out as well. He is normally not hyperglycemic to this extent, by review he has been getting hypotensive reports following dialysis and was to be started on midodrine 2.5mg PO BID. Allergies Allergy/AdvReac Type Severity Reaction Status Date / Time cefazolin Allergy Intermediate Hives Verified 03/03/21 20:02 fosaprepitant Allergy Chest Pain Verified 03/03/21 20:02 cephalexin AdvReac Mild GI symptoms Verified 03/03/21 20:02 Home Medications Medication Instructions Recorded Confirmed Type atorvastatin 40 mg tablet 40 mg PO HS 01/29/18 03/03/21 History levothyroxine 150 mcg tablet 150 mcg PO Q2D 01/29/18 03/03/21 History levothyroxine 175 mcg tablet 175 mcg PO Q2D 01/29/18 03/03/21 History pantoprazole 40 mg tablet,delayed 40 mg PO QAM 01/29/18 03/03/21 History release (Protonix) pregabalin 75 mg capsule 75 mg PO QAM 01/29/18 03/03/21 History pregabalin 75 mg capsule 150 mg PO HS 01/29/18 03/03/21 History cholecalciferol (vitamin D3) 25 1,000 unit PO QAM 03/29/18 03/03/21 History mcg (1,000 unit) tablet (Vitamin D3) vitamin B complex-vitamin C-folic 1 tab PO QAM 10/09/19 03/03/21 History acid 0.8 mg tablet (Renal Vitamin) dicloxacillin 500 mg capsule 500 mg PO BID 08/09/20 03/03/21 History psyllium husk 0.4 gram capsule 1.6 g PO HS cap 10/29/20 03/03/21 History (Metamucil) docusate sodium 100 mg capsule 100 mg PO BID cap 11/06/20 03/03/21 History (Colace) prochlorperazine maleate 10 mg 10 mg PO Q6H PRN 11/06/20 03/03/21 History tablet (Compazine) aspirin 81 mg tablet,delayed 81 mg PO QAM 12/14/20 03/03/21 History release brimonidine 0.2 %-timolol 0.5 % 1 drp OPL BID 12/14/20 03/03/21 History eye drops (Combigan) sucroferric oxyhydroxide 500 mg 500 mg PO TIDM 12/14/20 03/03/21 History chewable tablet (Velphoro) hydrocodone 5 mg-acetaminophen 325 1 tab PO Q4H PRN #20 tab 12/24/20 03/03/21 Rx mg tablet Past Med/Surg History Medical History (Updated 03/03/21 @ 21:36 by Donny Stevensno DO) Acquired hypothyroidism Anemia of chronic kidney failure Bone cancer 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 Bower) GERD (gastroesophageal reflux disease) History of basal cell carcinoma (BCC) History of DVT (deep vein thrombosis) RLE (1988) - postop, previously treated with AC History of osteosarcoma 1984 s/p surgery/chemo History of valvular heart disease s/p s/p AVR and MVR (2013) r/t endocarditis HTN (hypertension) Hx of papillary thyroid carcinoma 2012 s/p surgery/radiation Mixed hyperlipidemia Multiple pulmonary nodules determined by computed tomography of lung Pacemaker Implanted 2013 ([facility]), [employer], Follows with Dr. Person Peritoneal dialysis catheter in place Pleural effusion Per pulmonary office visit (12/18/20): "small right pleural effusion which is stable dating back to 07/09/2020. I evaluated the effusion with an ultrasound in the office. The effusion is small and free-flowing. Etiology is unclear, but given his overall volume overloaded appearing state, this can be related to his ESRD.. Pleural effusions can be seen in patients who are on peritoneal dialysis. Should this effusion increase in size, we can consider performing a thoracentesis for diagnostic and therapeutic purposes." Pulmonary hypertension Severe pulmonary HTN (68mmhg) per 05/2020 echo Rectal cancer Surgical History (Updated 03/03/21 @ 19:02 by HOMA He) Aortic valve replaced (2013) [facility] - due to endocarditis H/O mitral valve replacement (2013) [facility] - due to endocarditis History of appendectomy History of basal cell carcinoma (BCC) excision History of cardiac catheterization Remote ([facility]) > no stents History of cataract surgery R/L History of colonoscopy (07/04/20) Biopsy Dr. David Krueger at [facility] History of endoscopy (08/13/20) Dr. Adan Welch at [facility] [place] History of joint replacement Right hip replacement + right knee replacement (placed during initial dx of osteosarcoma in 1984); these subsequently got infected in 2011 and had revisions History of surgery (1984) Right Femur related to Osteosarcoma History of thyroidectomy History of wisdom tooth extraction Port-A-Cath in place (12/25/19) Access port placement and fluoroscopy with IV contrast. Dr. Yao 12/24/20 Status post debridement Multiple for Right Thigh Family History Father T2DM (type 2 diabetes mellitus) Mother Breast cancer, Onset Age: 60 Brother No problems noted. Sister No problems noted. 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 [employer] How many Children do You have: 0 Feels Safe at Home: Yes Childhood Exposure to Second-Hand Smoke: No Diet Comment: Renal Diet caffeine: Yes (coffee 1 cup per day) during the past year weight has: remained stable Dental Care, Regularly: Yes Physical Activity Frequency: Does not Exercise Assistive Devices: Cane Review of Systems Review of Systems: REVIEW OF SYSTEMS: Constitutional: No fever, sweats or chills Eyes: No diplopia, no worsening or blurred vision ENT: normal hearing, no trouble swallowing Respiratory: No cough, sputum, dyspnea at rest or on exertion Cardiovascular: (+) hypotension, No chest pain, tightness or palpitations Abdomen: No pain, nausea, vomiting, diarrhea or constipation Musculoskeletal: No joint pain, calf pain, swelling Neurologic: (+) syncope weakness, NO numbness/tingling, or balance problems Heme: (+) anemia, cancers Psychiatric: No anxiety or depression Skin: No rash or itch Physical Exam Physical Exam: PHYSICAL EXAM: General: awake, alert, no apparent distress Head: Normocephalic, atraumatic ENT: PERRL, EOMI, no pharyngeal exudate, mucous membranes dry Neuro: AAO x 3, speech clear and appropriate, strength intact bilaterally 5/5, sensation intact and equal all extremities and dermatomes, no pronator drift Chest: equal rise and fall of the chest, no accessory muscle use, no heaves or thirlls, Clear to auscultation, on room air, Cardiac: Regular rate and rhythm, telemetry reviewed- NSR pacemaker firing and capturing appropriate, skin warm dry, cap refill <3 seconds, peripheral pulses +2 no JVD, Systollic murmur, trace edema GI: NABS x 4 quadrants, soft, nontender to palpation, no rebound, guarding or tenderness : Voids once per day, peritoneal dialysis catheter in place Extremities: Normal inspection, no peripheral edema or erythema, calfs nontender to palpation Psych: Normal mood and affect Skin: no rash or erythema Results & Data Results & Data ([facility]) Vital Signs (Past 12 Hours) Vital Signs Temp Pulse Resp BP Pulse Ox 03/03/21 16:01 99 H 21 135/67 100 03/03/21 16:00 88 32 H 100 03/03/21 15:30 87 21 147/81 H 100 03/03/21 15:20 85 10 L 100 03/03/21 15:10 85 13 88 L 03/03/21 15:00 121/65 03/03/21 14:39 94 03/03/21 14:28 36.9 C 86 20 95/55 L 96 Laboratory Results Abnormal lab results 03/03/21 03/03/21 03/03/21 Range/Units 14:39 14:50 14:50 RBC 3.18 L (4.7-6.1) M/uL Hgb 10.4 L (14.0-18.0) g/dL Hct 32.1 L (42-52) % MCV 100.9 H (80-100) fL RDW Std Deviation 79.2 H (36.4-46.3) fL RDW Coeff of Hui 22.5 H (11.5-14.5) % Plt Count 61 L (130-400) K/uL Neut # (Auto) 7.37 H (1.4-6.5) K/uL Lymph # (Auto) 0.61 L (1.2-3.4) K/uL Franklin # (Auto) 0.67 H (0.11-0.59) K/uL Immature Gran # (Auto) 0.06 H (0.00-0.02) K/uL Absolute Nucleated RBC 0.08 H (0-0) K/uL Platelet Estimate Decreased L (Normal) APTT 62.7 H* (21.0-31.0) Seconds Sodium 129 L (136-145) mmol/L Potassium 3.1 L (3.5-5.1) mmol/L Chloride 91 L (98-107) mmol/L Anion Gap 13.0 H (3-11) BUN 40 H (7-18) mg/dl Creatinine 8.88 H* (0.6-1.4) mg/dl BUN/Creatinine Ratio 4.5 L (10-20) Glucose 258 H (70-99) mg/dl Calcium 6.9 L (8.5-10.1) mg/dl Troponin I 0.619 H* (0-0.045) ng/ml Total Protein 6.1 L (6.4-8.2) gm/dl Albumin 2.0 L (3.4-5.0) gm/dl Globulin 4.1 H (2.5-4.0) gm/dl Albumin/Globulin Ratio 0.5 L (0.9-2) TSH 66.600 H (0.300-4.500) uIu/ml Diagnostic Findings Chest X-Ray 03/03/21 15:00 SINGLE VIEW CHEST CLINICAL HISTORY: Syncope. FINDINGS: An AP, portable, upright chest radiograph is compared to study dated 12/24/2020 and correlated with chest CT dated 12/11/2020. A left subclavian infusion port is unchanged in position. The patient is status post midline sternotomy. Epicardial pacing leads are noted. The heart is enlarged noting atherosclerotic calcification of the thoracic aorta. The pulmonary vasculature is noncongested. A loculated pleural effusion is again seen at the right lung base with right basilar opacities. This is similar to previous. The right lung is clear. No pneumothorax is seen. The skeletal structures are osteopenic. There are healed right-sided rib fractures. Surgical clips project over the lower neck. IMPRESSION: 1. Cardiomegaly without radiographic evidence of congestive failure. 2. There is a loculated pleural effusion at the right lung base with associated right basilar opacities. This is similar in appearance to recent prior studies. 3. The left lung is clear. ACT 112: Negative or not required by law. Electronically signed by: Rafiq Davila M.D. 03/03/2021 4:15 PM Venous Doppler Study 03/03/21 16:06 ULTRASOUND LEFT LOWER EXTREMITY VENOUS CLINICAL HISTORY: Left lower extremity edema. COMPARISON STUDY: No priors. TECHNIQUE: Real-time, grayscale, and color Doppler sonography of the deep veins of the left lower extremity was performed from the inguinal crease to the calf. Compression and augmentation were utilized. FINDINGS: There is no sonographic evidence of acute deep venous thrombosis identified in the left lower extremity. There calcifications along the suarez of the mid superficial femoral vein and the popliteal vein which may represent trace chronic thrombus. The common femoral, superficial femoral, and popliteal veins are patent and normally compressible. The greater saphenous vein and the profunda femoris vein at the junction with the common femoral vein are clear. The visualized calf veins are patent. A complex popliteal cyst measures 5.3 x 1.6 x 3.2 cm per IMPRESSION: 1. There is no sonographic evidence of acute deep venous thrombosis identified in the left lower extremity. 2. Calcifications along the wall of the mid superficial femoral vein and the popliteal vein may represent trace chronic thrombus. 3. Complex popliteal cyst. ACT 112: Negative or not required by law. Electronically signed by: Rafiq Davila M.D. 03/03/2021 6:[address] SCAN OF THE BRAIN WITHOUT IV CONTRAST CLINICAL HISTORY: Syncope. COMPARISON STUDY: No priors. TECHNIQUE: Unenhanced axial CT scan of the brain is performed from the vertex to the skull base. A dose lowering technique was utilized adhering to the principles of ALARA. CT DOSE: 537.48 mGy.cm FINDINGS: Brain parenchyma: There are age-advanced involutional changes noting mild subcortical and periventricular microangiopathic change. There is no hemorrhage, mass effect, or evidence of acute territorial ischemia by CT criteria. Anderson- white matter differentiation is preserved. No extra-axial fluid collection is seen. Ventricles, sulci, cisterns: Prominent secondary to involutional change. Intracranial vasculature: There is atherosclerotic calcification of the cavernous carotid and vertebral arteries. Calvarium: Unremarkable. Sinuses and mastoids: The visualized paranasal sinuses are clear. The mastoid air cells are well pneumatized. Orbits: The bony orbits are grossly intact. IMPRESSION: There is no hemorrhage, mass effect, or evidence of acute territorial ischemia by CT criteria. Medications Administered Discontinued Medications Potassium Chloride (Potassium Chloride 10 Meq Tabcr) 20 meq PO NOW STA Stop: 03/03/21 16:07 Last Admin: 03/03/21 16:24 Dose: 20 meq Documented by: [id number] ECG Additional Comments: Atrial-sensed ventricular-paced rhythm Abnormal ECG When compared with ECG of 09-AUG-2020 08:38, Vent. rate has increased BY 17 BPM Code Status & VTE Plan Code Status CODE: FULL VTE: SCDs, Heparin 5000 unit sub q, q12 VTE Prophylaxis Plan VTE Prophylaxis will be ordered: Yes Supervising Physician Co-Signing Physician Notes Attending attestation Pt seen and examined in concert with Ellis LUTHER. In agreement with the documented findings as noted in the documentation with any exceptions or additions as noted here. Multiple syncopal episodes as described. Additional prescyncopal episode last night - ate outback steakhouse steak and sides, did his normal dialysis, then developed 'woozy legs' and feeling like he would pass out while walking to bed, caught by spouse, no LOC reported. No post-ictal type symptoms described with any episode. Remotely, similar episode without apparent cause. No ongoing symptoms reported, feeling tired but overall at baseline. Last cancer treatment was 2.5 wks ago. Last transfusion, similarly. On examination, S1/S2 nl RRR no MCG. CTAB. Abd NT/ND BS+ve. Mild pitting edema of the b/l LE to the midshin. Syncopal episodes - telemetry monitoring - CT head to evaluate for intracranial pathology. Trend CBC especially with h/o anemia and likely hemoconcentration w/ salt load from [employer]. Pacer interrogation pending. Hypothyroidism - repeat labs, consider escalation of therapy based on result CKD V w/ hypokalemia - holding dialysis for tonight (as hardware is home w/ spouse). Consult nephrology. Gentle hydration w/ LR. Trend BMP Else see provider documentation as noted. PG Care Time/CCT Total # of Minutes Spent Total Time Spent with Patient: Total time spent is greater than 50% in coordination of care (as documented) at patient's floor/unit and/or counseling patient: Prolonged Care Time 25 minutes prolonged care, ordering and interpreting studies, Coding Level of Care Code 73383 Initial Inpt Care Lvl 3 Diagnoses Syncope R55 Hypothyroidism E03.9 CKD (chronic kidney disease), stage V N18.5 Rectal cancer C20 Pleural effusion J90 Elevated troponin I level R77.8 DM type 2 (diabetes mellitus, type 2) E11.9 Anemia D64.9
--- NOTE | 2021-03-03 18:54 | Ultrasound Report ---
ULTRASOUND LEFT LOWER EXTREMITY VENOUS CLINICAL HISTORY: Left lower extremity edema. COMPARISON STUDY: No priors. TECHNIQUE: Real-time, grayscale, and color Doppler sonography of the deep veins of the left lower ext remity was performed from the inguinal crease to the calf. Compression and augmentation were utilized . FINDINGS: There is no sonographic evidence of acute deep venous thrombosis identified in the left low er extremity. There calcifications along the suarez of the mid superficial femoral vein and the poplit eal vein which may represent trace chronic thrombus. The common femoral, superficial femoral, and pop liteal veins are patent and normally compressible. The greater saphenous vein and the profunda femori s vein at the junction with the common femoral vein are clear. The visualized calf veins are patent. A complex popliteal cyst measures 5.3 x 1.6 x 3.2 cm per IMPRESSION: 1. There is no sonographic evidence of acute deep venous thrombosis identified in the left lower extr emity. 2. Calcifications along the wall of the mid superficial femoral vein and the popliteal vein may repre sent trace chronic thrombus. 3. Complex popliteal cyst. ACT 112: Negative or not required by law. Electronically signed by: Rafiq Davila M.D. 03/03/2021 6:53 PM
--- NOTE | 2021-03-03 19:35 | CT Scan Report ---
CT SCAN OF THE BRAIN WITHOUT IV CONTRAST CLINICAL HISTORY: Syncope. COMPARISON STUDY: No priors. TECHNIQUE: Unenhanced axial CT scan of the brain is performed from the vertex to the skull base. A do se lowering technique was utilized adhering to the principles of ALARA. CT DOSE: 537.48 mGy.cm FINDINGS: Brain parenchyma: There are age-advanced involutional changes noting mild subcortical and periventri cular microangiopathic change. There is no hemorrhage, mass effect, or evidence of acute territorial ischemia by CT criteria. Anderson-white matter differentiation is preserved. No extra-axial fluid collect ion is seen. Ventricles, sulci, cisterns: Prominent secondary to involutional change. Intracranial vasculature: There is atherosclerotic calcification of the cavernous carotid and vertebr al arteries. Calvarium: Unremarkable. Sinuses and mastoids: The visualized paranasal sinuses are clear. The mastoid air cells are well pneu matized. Orbits: The bony orbits are grossly intact. IMPRESSION: There is no hemorrhage, mass effect, or evidence of acute territorial ischemia by CT chance acuna. ACT 112: Negative or not required by law. Electronically signed by: Rafiq Davila M.D. 03/03/2021 7:33 PM
[2021-03-03 20:26] LABS: Partial Thromboplastin Ratio 1.3; Partial Thromboplastin Time 33.1 Seconds (21.0-31.0)
[2021-03-03 20:49] LABS: Thyroid Stimulating Hormone 64.7 uIu/ml (0.300-4.500)
[2021-03-03] MEDS ORDERED: LEVOTHYROXINE SODIUM IV ONE (21:15)
[2021-03-03] MEDS ORDERED: ATORVASTATIN 40 MG TAB PO SCH (23:04)
[2021-03-03] MEDS ORDERED: GLUCOSE 40% GEL 15 GM TUBE PO PRN (23:04)
[2021-03-03] MEDS ORDERED: DEXTROSE 50% 50 ML SYRINGE IV PRN (23:04)
[2021-03-03] MEDS ORDERED: GLUCAGON FOR INJ 1 MG VIAL SQ PRN (23:04)
[2021-03-03] MEDS ORDERED: HYDROCODONE/ACETAMOPHEN 5/325MG TAB PO PRN (23:04)
[2021-03-03] MEDS ORDERED: GLUCOSE 10 TABS/TUBE PO PRN (23:04)
[2021-03-03] MEDS ORDERED: CARBOHYDRATES FOR HYPOGLYCEMIA PO PRN (23:04)
[2021-03-03] MEDS ORDERED: HEPARIN 100 UNIT/ML 5ML FLUSH FLUSH PRN (23:18)
[2021-03-03] MEDS: DOCUSATE SODIUM 100 MG CAP PO SCH (23:29)
[2021-03-03] MEDS: DICLOXACILLIN SODIUM 250 MG CAP PO SCH (23:31)
[2021-03-03] MEDS: HEPARIN SOD 5,000 UNIT/0.5 ML VIAL SQ SCH (23:31)
[2021-03-03] MEDS: INSULIN ASPART PER UNIT SC SCH (23:36)
[2021-03-03 23:51] LABS: Troponin I 0.796 ng/ml (0-0.045)
[2021-03-04] MEDS ORDERED: Heparin IV Adult Wt-Based Low-Dose *NO* Bolus Protocol IV ONE (00:19)
[2021-03-04] MEDS ORDERED: HEPARIN SODIUM/DEXTROSE 25,000 UNITS/500 ML BAG IV SCH (00:30)
[2021-03-04 04:47] LABS: Mean Corpuscular Hgb Conc 32.5 g/dL (32-36); Nucleated RBC # (auto) 0.11 K/uL (0-0); Nucleated RBC % (auto) 1.2 %
[2021-03-04 05:10] LABS: Hematocrit (blood only) 28.3 % (42-52); Hemoglobin 9.2 g/dL (14.0-18.0); Mean Corpuscular Hemoglobin 32.9 pg (25-34); Mean Corpuscular Volume 101.1 fL (80-100); RDW Coefficient of Variation 22.7 % (11.5-14.5); RDW Standard Deviation 80.5 fL (36.4-46.3); White Blood Count 9.11 K/uL (4.8-10.8)
[2021-03-04 05:23] LABS: BUN Creatinine Ratio 4.8 (10-20); Creatinine Clr Calc Pharmacy 8.6 ml/min; Est GFR (African American) 7.1 ml/min; Est GFR (Non-African American) 6.1 ml/min; Magnesium 1.8 mg/dl (1.8-2.4); Potassium 3.5 mmol/L (3.5-5.1); Thyroid Stimulating Hormone 52.7 uIu/ml (0.300-4.500)
[2021-03-04 05:25] LABS: Platelet Count 51 K/uL (130-400)
[2021-03-04 05:26] LABS: Basophils # (auto) 0.04 K/uL (0-0.2); Basophils % (auto) 0.4 %; Eosinophils % (auto) 5.5 %; Immature Granulocytes # (auto) 0.08 K/uL (0.00-0.02); Immature Granulocytes % (auto) 0.9 %; Lymphocytes # (auto) 0.25 K/uL (1.2-3.4); Lymphocytes % (auto) 2.7 %; Monocytes # (auto) 1.14 K/uL (0.11-0.59); Monocytes % (auto) 12.5 %; Ovalocytes 1+; Platelet Estimate Decreased (Normal); Polychromasia 1+
[2021-03-04] MEDS: LEVOTHYROXINE SODIUM 175 MCG TABLET PO SCH (05:36)
[2021-03-04 07:36] LABS: Estimated Average Glucose 160 mg/dl; Hemoglobin A1C 7.2 % (4.5-5.6)
[2021-03-04] MEDS: INSULIN ASPART PER UNIT SC SCH ×4 (08:54→20:03)
[2021-03-04] MEDS: CHOLECALCIFEROL 1,000 UNITS 25 MCG TAB PO SCH (08:56)
[2021-03-04] MEDS: HEPARIN SOD 5,000 UNIT/0.5 ML VIAL SQ SCH ×2 (08:56→20:06)
[2021-03-04] MEDS: DICLOXACILLIN SODIUM 250 MG CAP PO SCH (08:56)
[2021-03-04] MEDS: PANTOprazole 40 MG TAB PO SCH (08:56)
[2021-03-04] MEDS: DOCUSATE SODIUM 100 MG CAP PO SCH ×2 (08:57→20:06)
[2021-03-04] MEDS ORDERED: ASPIRIN 81 MG ECTAB PO SCH (09:00)
--- NOTE | 2021-03-04 09:39 | Cardiology Consultation ---
Date of Consultation March 04, 2021 Assessment & Plan (1) Syncope: IMPRESSIONS: 1. Dual-chamber pacemaker secondary to complete heart block. 2. History of bioprosthetic mitral valve replacement with slightly elevated gradients secondary to endocarditis. 3. Bioprosthetic aortic valve and repair of the ascending aortic root and ascending aorta with a #23 valve with normal gradients. 4. Preserved left ventricular systolic function. 5. 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 6. End-stage renal disease on peritoneal dialysis. 7. Extensive prior orthopedic surgery. 8. [id number] pulmonary hypertension, which was described as a combination of pulmonary arterial and pulmonary venous hypertension. 9. Rectal carcinoma, currently undergoing chemotherapy and radiation. Initial read of echo shows Mr. Brown to have likely vegetation with aortic insufficiency. I discussed this finding with him and he elects to transfer to [facility] where his previous surgeries were performed. Blood cultures are pending. Antibiotics have been initiated by the hospitalists. He has a mildly increased troponin, no chest pain. This is likely due to demand ischemia/ESRD. His description of his syncopal event could possibly be due to hypotension but his description of twitching and not waking up in bed makes me concerned for seizure activity. He did not have a post ictal period or loss of control of bowel or bladder brain imaging may be warranted to rule out metastasis. He has a pacemaker device interrogation pending. He should continue midodrine 2.5 mg bid. His case was discussed with the hospitalists who will organize his transfer to [facility]. History of Present Illness Attending Physician: Shant Kumar MD History of Present Illness Mr. Brown presented to the emergency department after two syncopal episodes at home. The first he describes as his trying to wake him up in bed, he did not respond and had some tremoring or twitching and then came around. The second was while standing at the sink and he sunk to the ground, similarly not responding to his . He did not lose control of bowels or bladder. No post ictal period. His labs on admission werewere notable for TSH of 66 with a T4 0.85, PTT 62.7 and BG of 258. He has a troponin elevation of 0.8. Allergies Allergy/AdvReac Type Severity Reaction Status Date / Time cefazolin Allergy Intermediate Hives Verified 03/03/21 20:02 fosaprepitant Allergy Chest Pain Verified 03/03/21 20:02 cephalexin AdvReac Mild GI symptoms Verified 03/03/21 20:02 Home Medications Medication Instructions Recorded Confirmed Type atorvastatin 40 mg tablet 40 mg PO HS 01/29/18 03/03/21 History levothyroxine 150 mcg tablet 150 mcg PO Q2D 01/29/18 03/03/21 History levothyroxine 175 mcg tablet 175 mcg PO Q2D 01/29/18 03/03/21 History pantoprazole 40 mg tablet,delayed 40 mg PO QAM 01/29/18 03/03/21 History release (Protonix) pregabalin 75 mg capsule 75 mg PO QAM 01/29/18 03/03/21 History pregabalin 75 mg capsule 150 mg PO HS 01/29/18 03/03/21 History cholecalciferol (vitamin D3) 25 1,000 unit PO QAM 03/29/18 03/03/21 History mcg (1,000 unit) tablet (Vitamin D3) vitamin B complex-vitamin C-folic 1 tab PO QAM 10/09/19 03/03/21 History acid 0.8 mg tablet (Renal Vitamin) dicloxacillin 500 mg capsule 500 mg PO BID 08/09/20 03/03/21 History psyllium husk 0.4 gram capsule 1.6 g PO HS cap 10/29/20 03/03/21 History (Metamucil) docusate sodium 100 mg capsule 100 mg PO BID cap 11/06/20 03/03/21 History (Colace) prochlorperazine maleate 10 mg 10 mg PO Q6H PRN 11/06/20 03/03/21 History tablet (Compazine) aspirin 81 mg tablet,delayed 81 mg PO QAM 12/14/20 03/03/21 History release brimonidine 0.2 %-timolol 0.5 % 1 drp OPL BID 12/14/20 03/03/21 History eye drops (Combigan) sucroferric oxyhydroxide 500 mg 500 mg PO TIDM 12/14/20 03/03/21 History chewable tablet (Velphoro) hydrocodone 5 mg-acetaminophen 325 1 tab PO Q4H PRN #20 tab 12/24/20 03/03/21 Rx mg tablet Patient History Medical History Acquired hypothyroidism Anemia of chronic kidney failure Bone cancer 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 Bower) GERD (gastroesophageal reflux disease) History of basal cell carcinoma (BCC) History of DVT (deep vein thrombosis) RLE (1988) - postop, previously treated with AC History of osteosarcoma 1984 s/p surgery/chemo History of valvular heart disease s/p s/p AVR and MVR (2013) r/t endocarditis HTN (hypertension) Hx of papillary thyroid carcinoma 2012 s/p surgery/radiation Mixed hyperlipidemia Multiple pulmonary nodules determined by computed tomography of lung Pacemaker Implanted 2013 ([facility]), [employer], Follows with Dr. Person Peritoneal dialysis catheter in place Pleural effusion Per pulmonary office visit (12/18/20): "small right pleural effusion which is stable dating back to 07/09/2020. I evaluated the effusion with an ultrasound in the office. The effusion is small and free-flowing. Etiology is unclear, but given his overall volume overloaded appearing state, this can be related to his ESRD.. Pleural effusions can be seen in patients who are on peritoneal dialysis. Should this effusion increase in size, we can consider performing a thoracentesis for diagnostic and therapeutic purposes." Pulmonary hypertension Severe pulmonary HTN (68mmhg) per 05/2020 echo Rectal cancer Surgical History Aortic valve replaced (2013) [facility] - due to endocarditis H/O mitral valve replacement (2013) [facility] - due to endocarditis History of appendectomy History of basal cell carcinoma (BCC) excision History of cardiac catheterization Remote ([facility]) > no stents History of cataract surgery R/L History of colonoscopy (07/04/20) Biopsy Dr. David Krueger at [facility] History of endoscopy (08/13/20) Dr. Adan Welch at [facility] History of joint replacement Right hip replacement + right knee replacement (placed during initial dx of osteosarcoma in 1984); these subsequently got infected in 2011 and had revisions History of surgery (1984) Right Femur related to Osteosarcoma History of thyroidectomy History of wisdom tooth extraction Port-A-Cath in place (12/25/19) Access port placement and fluoroscopy with IV contrast. Dr. Yao 12/24/20 Status post debridement Multiple for Right Thigh Family History Father T2DM (type 2 diabetes mellitus) Mother Breast cancer, Onset Age: 60 Brother No problems noted. Sister No problems noted. 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 [employer] How many Children do You have: 0 Feels Safe at Home: Yes Childhood Exposure to Second-Hand Smoke: No Diet Comment: Renal Diet caffeine: Yes (coffee 1 cup per day) during the past year weight has: remained stable Dental Care, Regularly: Yes Physical Activity Frequency: Does not Exercise Assistive Devices: Cane Review of Systems Review of Systems: All systems reviewed & are unremarkable except as noted in HPI & below Physical Exam Constitutional: WD/WN, vitals as above Respiratory: normal respiratory effort, lungs clear to auscultation Cardiovascular: Rate/Rhythm: regular rate and regular rhythm Heart Sounds: + murmur (holosystolic lusb 3/6) Extremities: + edema Skin: no rashes, warm and dry Neurologic: moves all extremities and awake Psychiatric: A+Ox3, euthymic affect Results & Data ([facility]) Vital Signs (Past 12 Hours) Vital Signs Temp Pulse Pulse Resp BP BP Pulse Ox 03/04/21 07:44 36.8 C 86 18 123/60 99 03/04/21 03:37 36.7 C 82 20 110/61 99 03/03/21 22:38 36.8 C 87 20 132/64 98 03/03/21 22:16 80 22 125/78 97 (1) Syncope Syncope type: unspecified Qualified Code(s): R55 - Syncope and collapse
--- NOTE | 2021-03-04 09:43 | Anesthesiology Consultation ---
Date of Service March 04, 2021 Assessment & Plan (1) Encounter for pre-operative examination: Chart Review Chart Review: clerk entry level initiated History Height/Weight Height: 5 ft 3 in Weight: 69 kg Allergies Allergy/AdvReac Type Severity Reaction Status Date / Time cefazolin Allergy Intermediate Hives Verified 03/03/21 20:02 fosaprepitant Allergy Chest Pain Verified 03/03/21 20:02 cephalexin AdvReac Mild GI symptoms Verified 03/03/21 20:02 Medications Home Medications Medication Instructions Recorded Confirmed Last Taken atorvastatin 40 mg tablet 40 mg PO HS 01/29/18 03/03/21 12/23/20 22:30 levothyroxine 150 mcg tablet 150 mcg PO Q2D 01/29/18 03/03/21 12/23/20 07:00 levothyroxine 175 mcg tablet 175 mcg PO Q2D 01/29/18 03/03/21 12/24/20 03:30 pantoprazole 40 mg tablet,delayed 40 mg PO QAM 01/29/18 03/03/21 12/23/20 09:00 release (Protonix) pregabalin 75 mg capsule 75 mg PO QAM 01/29/18 03/03/21 12/23/20 09:00 pregabalin 75 mg capsule 150 mg PO HS 01/29/18 03/03/21 12/23/20 22:30 cholecalciferol (vitamin D3) 25 1,000 unit PO QAM 03/29/18 03/03/21 12/23/20 09:00 mcg (1,000 unit) tablet (Vitamin D3) vitamin B complex-vitamin C-folic 1 tab PO QAM 10/09/19 03/03/21 12/23/20 09:00 acid 0.8 mg tablet (Renal Vitamin) dicloxacillin 500 mg capsule 500 mg PO BID 08/09/20 03/03/21 12/24/20 03:00 psyllium husk 0.4 gram capsule 1.6 g PO HS cap 10/29/20 03/03/21 12/23/20 12:00 (Metamucil) docusate sodium 100 mg capsule 100 mg PO BID cap 11/06/20 03/03/21 12/22/20 (Colace) prochlorperazine maleate 10 mg 10 mg PO Q6H PRN 11/06/20 03/03/21 Unknown tablet (Compazine) aspirin 81 mg tablet,delayed 81 mg PO QAM 12/14/20 03/03/21 12/23/20 09:00 release brimonidine 0.2 %-timolol 0.5 % 1 drp OPL BID 12/14/20 03/03/21 12/23/20 22:30 eye drops (Combigan) sucroferric oxyhydroxide 500 mg 500 mg PO TIDM 12/14/20 03/03/21 12/23/20 18:00 chewable tablet (Velphoro) hydrocodone 5 mg-acetaminophen 325 1 tab PO Q4H PRN #20 tab 12/24/20 03/03/21 Unknown mg tablet Active Medications Generic Name Dose Route Start Last Admin Trade Name Freq PRN Reason Stop Dose Admin Atorvastatin Calcium 40 mg 03/03/21 23:04 03/03/21 23:31 Atorvastatin 40 Mg Tab PO 04/02/21 23:03 40 mg HS CHUCK Administration Diclofenac Sodium 500 mg 03/03/21 23:15 03/04/21 08:56 Dicloxacillin Sodium 250 Mg Cap PO 04/02/21 23:14 500 mg BID CHUCK Administration Docusate Sodium 100 mg 03/03/21 23:04 03/04/21 08:57 Docusate Sodium 100 Mg Cap PO 04/02/21 23:03 Not Given BID CHUCK Heparin Sodium (Porcine) 5,000 units 03/03/21 23:04 03/04/21 08:56 Heparin Sod 5,000 Unit/0.5 Ml Vial SQ 04/02/21 23:03 5,000 units Q12 CHUCK Administration Insulin Aspart 0 units 03/03/21 23:04 03/04/21 08:54 Insulin Aspart Per Unit SC 04/02/21 23:03 Not Given ACHS CHUCK Levothyroxine Sodium 175 mcg 03/04/21 06:30 03/04/21 05:36 Levothyroxine Sodium 175 Mcg Tablet PO 04/03/21 06:29 175 mcg DAILYBB CHUCK Administration Miscellaneous 1 ea 03/04/21 00:00 03/04/21 08:57 Velphoro~Order Awaiting Action N/A 04/03/21 00:00 Not Given QS CHUCK Pantoprazole Sodium 40 mg 03/04/21 09:00 03/04/21 08:56 Pantoprazole 40 Mg Tab PO 04/03/21 08:59 40 mg QAM CHUCK Administration Vitamin D 1,000 units 03/04/21 09:00 03/04/21 08:56 Cholecalciferol 1,000 Units 25 Mcg Tab PO 04/03/21 08:59 1,000 units QAM CHUCK Administration Past Medical History Medical History Acquired hypothyroidism Anemia of chronic kidney failure Bone cancer 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 Bower) GERD (gastroesophageal reflux disease) History of basal cell carcinoma (BCC) History of DVT (deep vein thrombosis) RLE (1988) - postop, previously treated with AC History of osteosarcoma 1984 s/p surgery/chemo History of valvular heart disease s/p s/p AVR and MVR (2013) r/t endocarditis HTN (hypertension) Hx of papillary thyroid carcinoma 2012 s/p surgery/radiation Mixed hyperlipidemia Multiple pulmonary nodules determined by computed tomography of lung Pacemaker Implanted 2013 ([facility]), [employer], Follows with Dr. Person Peritoneal dialysis catheter in place Pleural effusion Per pulmonary office visit (12/18/20): "small right pleural effusion which is stable dating back to 07/09/2020. I evaluated the effusion with an ultrasound in the office. The effusion is small and free-flowing. Etiology is unclear, but given his overall volume overloaded appearing state, this can be related to his ESRD.. Pleural effusions can be seen in patients who are on peritoneal dialysis. Should this effusion increase in size, we can consider performing a thoracentesis for diagnostic and therapeutic purposes." Pulmonary hypertension Severe pulmonary HTN (68mmhg) per 05/2020 echo Rectal cancer Past Family History Family History Father T2DM (type 2 diabetes mellitus) Mother Breast cancer, Onset Age: 60 Brother No problems noted. Sister No problems noted. Other Has no children No family history of adverse response to anesthesia Past Surgical History Surgical History Aortic valve replaced (2013) [facility] - due to endocarditis H/O mitral valve replacement (2013) [facility] - due to endocarditis History of appendectomy History of basal cell carcinoma (BCC) excision History of cardiac catheterization Remote ([facility]) > no stents History of cataract surgery R/L History of colonoscopy (07/04/20) Biopsy Dr. David Krueger at [facility] History of endoscopy (08/13/20) Dr. Adan Welch at [facility] History of joint replacement Right hip replacement + right knee replacement (placed during initial dx of osteosarcoma in 1984); these subsequently got infected in 2011 and had revisions History of surgery (1984) Right Femur related to Osteosarcoma History of thyroidectomy History of wisdom tooth extraction Port-A-Cath in place (12/25/19) Access port placement and fluoroscopy with IV contrast. Dr. Yao 12/24/20 Status post debridement Multiple for Right Thigh Social History Smoking Status: Never smoker Hx Alcohol Use: No alcohol intake frequency: a few times a month Hx Substance Use: No substance use type: does not use Physical Exam Vital Signs Last Vital Signs Temp 98.2 F 03/04/21 07:44 Pulse 86 03/04/21 07:44 Resp 18 03/04/21 07:44 BP 123/60 03/04/21 07:44 Pulse Ox 99 03/04/21 07:44 Testing Laboratory Results 03/04/21 04:35 03/04/21 04:35 PT 11.3 Seconds (9.0-12.0) 03/03/21 14:50 INR 1.1 (0.9-1.1) 03/03/21 14:50 APTT 33.1 Seconds (21.0-31.0) H 03/03/21 19:54 Hemoglobin A1c 7.2 % (4.5-5.6) H 03/04/21 04:35 Blood Type A Positive 03/03/21 15:01 Antibody Screen NEGATIVE 03/03/21 15:01 03/04/21 07:22 POC Glucose 120 H Laboratory Tests 03/03/21 17:40 SARS-CoV-2, RNA, NAAT NEGATIVE Electrocardiogram Date: 03/04/21 Ventricular-paced rhythm, rate 83 bpm Abnormal ECG When compared with ECG of 03-MAR-2021 14:37, (unconfirmed) Vent. rate has decreased BY 3 BPM Chest X-Ray Date: 03/03/21 IMPRESSION: 1. Cardiomegaly without radiographic evidence of congestive failure. 2. There is a loculated pleural effusion at the right lung base with associated right basilar opacities. This is similar in appearance to recent prior studies. 3. The left lung is clear. Echocardiogram Date: 06/27/20 Normal LV size Mildly reduced LV systolic function with no regional wall motion abnormalities EF is 45% Mild concentric LVH The septum and anteroseptum are hypokinetic more than expected just from a Paced rhythm The basal to mid inferior wall is severely hypokinetic Mildly dilated LA Normal RA Dilated RV with moderately reduced systolic function Well seated 23 mm bioprosthetic AV replacement with normal transvalvular gradients Trace AR Bioprosthetic MV replacement with slightly elevated transvalvular gradients Mod to severe TR Severe pulmonary hypertension (PASP is 68 mmHg) Left pleural effusion No previous studies available for comparison.
[2021-03-04] MEDS ORDERED: MEROPENEM CONSULT ACTIVE PRN (10:34)
--- NOTE | 2021-03-04 12:17 | Consultation Report ---
NEPHROLOGY CONSULTATION NOTE DATE OF SERVICE: 03/04/2021 REASON FOR CONSULT: Dialysis patient admitted with syncopal episodes. HISTORY OF PRESENT ILLNESS: The patient is a 51-year-old male with ESRD, on chronic peritoneal dialy sis for the last few years and follows with Dr. Elise Bower for dialysis care. He presented to [facility] yesterday because of multiple episodes of syncope at home. He has been having some mild d iarrhea and somewhat poor appetite for the last few days. The patient has a complicated medical hist ory including colorectal cancer and is currently getting chemotherapy. He also has a history of endo carditis requiring aortic and mitral valve replacements, status post pacemaker, type 2 diabetes, hist ory of osteosarcoma, pulmonary nodule with likely metastasis. In the Emergency Department, the patie nt had a slightly low potassium for which he was given potassium. Otherwise, he did not have any nigel or electrolyte problem or major issues with fluid overload. He did not get his peritoneal dialysis l ast night and as a result, he is very concerned about missing PD for more than one night. His normal PD regimen is 4 exchanges of 1.5% solution in a midday dwell. His low blood pressure issue has been going on for a while now and he was recently started on midodrine 2.5 mg twice daily for low blood pr essure. At this time, he feels he is back to baseline other than some abdominal bloating. ALLERGIES: LIST REVIEWED IN DETAIL AND IS PER THE RECONCILIATION LIST. MEDICATIONS: Home medication list was reviewed in full detail and is as per the reconciliation list. PAST MEDICAL AND SURGICAL HISTORY: Includes acquired hypothyroidism, anemia of CKD, type 2 diabetes, ESRD, on peritoneal dialysis, history of basal cell cancer, history of DVT, history of osteosarcoma, history of valvular heart disease, status post AVR and MVR with history of endocarditis, hypertensio n, history of papillary thyroid carcinoma, mixed hyperlipidemia, pulmonary nodules, status post pacem josé, peritoneal dialysis catheter in place, pleural effusion, pulmonary hypertension, history of col orectal cancer and is currently undergoing chemotherapy. FAMILY HISTORY: Significant for type 2 diabetes in father, no ESRD. SOCIAL HISTORY: He never smoked. He is . 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 He moved from [place] a few years ago. REVIEW OF SYSTEMS: As detailed in the HPI; unless stated otherwise, 12 systems reviewed and negative . PHYSICAL EXAMINATION: GENERAL: Young male who is not in any overt respiratory distress. He is awake, alert, oriented x3 a nd was able to give a full account of his medical problem. HEENT: Mucous membrane is moist. NECK: Supple. No jugular venous distention. CHEST: Bilaterally clear to auscultation. CARDIOVASCULAR: S1 and S2, regular. Systolic murmur heard. ABDOMEN: Soft, nontender, slightly distended. EXTREMITIES: Show trace edema. LABORATORY TEST: From this morning shows hemoglobin 9.2, platelet count 51,000. Sodium 131, potassi um 3.5, BUN 43, creatinine 8.98. Troponin I mildly elevated at 0.87. TSH is high at 52. Hemoglobin 9.2. Chest x-ray shows cardiomegaly without evidence of congestive heart failure, loculated pleural effusion. ASSESSMENT AND PLAN: A 51-year-old male with end-stage renal disease, on chronic peritoneal dialysis , admitted with low blood pressure with syncopal episodes multiple times at home. I have been consul shayy for dialysis management. 1. End-stage renal disease: He does not appear to be in overt fluid overload and his electrolytes s eem reasonable. However, he did not get peritoneal dialysis last night and we will do tonight. Give n his low blood pressure and syncopal history, we will do 4 exchanges of 1.5% solution. Continue mi dodrine 2.5 mg twice daily he was getting at home. He does get Procrit every week on Thursday. At this point, he does not need today, but we will give him if he is still in the hospital until then. 2. Syncopal episode: He has a very complicated cardiac history and he has already been seen by card iology. We will defer to them as for the etiology and management of syncopal episodes. Job ID: [id number]
--- NOTE | 2021-03-04 13:01 | Electrocardiogram Report ---
Test Reason : Blood Pressure : / mmHG Vent. Rate : 086 BPM Atrial Rate : 086 BPM P-R Int : 112 ms QRS Dur : 232 ms QT Int : 542 ms P-R-T Axes : 000 -56 107 degrees QTc Int : 648 ms Atrial-sensed ventricular-paced rhythm Biventricular pacemaker detected Abnormal ECG When compared with ECG of 09-AUG-2020 08:38, Vent. rate has increased BY 17 BPM Confirmed by Berny Gomes ([id number]) on 03/04/2021 1:00:37 PM Referred By: REFERRED SELF Confirmed By:Berny Gomes
--- NOTE | 2021-03-04 13:12 | Electrocardiogram Report ---
Test Reason : Blood Pressure : / mmHG Vent. Rate : 083 BPM Atrial Rate : 083 BPM P-R Int : 000 ms QRS Dur : 158 ms QT Int : 468 ms P-R-T Axes : 092 -54 112 degrees QTc Int : 549 ms Ventricular-paced rhythm Abnormal ECG When compared with ECG of 03-MAR-2021 14:37, (unconfirmed) Vent. rate has decreased BY 3 BPM Confirmed by Berny Gomes ([id number]) on 03/04/2021 1:12:22 PM Referred By: REFERRED SELF Confirmed By:Berny Gomes
[2021-03-04] MEDS: MEROPENEM 500 MG in SYRINGE 0 ML IV SCH (13:26)
[2021-03-04] MEDS: DAPTOmycin 350 MG in SYRINGE 0 ML IV SCH (13:26)
--- NOTE | 2021-03-04 13:50 | Hospitalist Progress Note ---
Date of Service March 04, 2021 Assessment & Plan (1) Syncope: Plan: Syncopal episodes x2- multiple etiologies at play here DDX: Hypovolemia vs. uncontrolled hypothyroidism vs. infectious process (now with evidence of prosthetic endocarditis) - CT head: no acute pathology - TSH 66 with free T4 of 0.85- likely contributing factor (synthroid increased to 175mcg daily as opposed to alternating doses) - Blood cultures x2 sets- no fevers and he states his peritoneal fluid is clear and he has been getting all his fluid back but now with echo showing prosthetic vegetation so per guidlines, will perform 3 additional sets) - did receive 1L IVF overnight - Pacemaker interrogation pending - Does not sound like seizure activity - PD dialysis held overnight. BP has been improved without further episodes of hypotension. Nephrology consulted regarding recommendations for fluid mgmt and PD (appreciate these recommendations). ? if current PD settings need adjusted - obtain orthostatic VS - continue midodrine as iniitated prior to this hospitalization - carotid duplex recommendated-- patient reports "I had an US of my neck this am". This is not in the computer. Will look into further and obtain if not performed (2) Prosthetic valve endocarditis: Plan: - echo done in lieu of the W/U for syncope and cardiology has reached out with concern for prosthetic aortic valve vegetation - cardiology recommending transfer to the [facility] (where his initial surgery was done) - BC done in the ED and NGDT. Repeat BC for total of 3 sets from 3 separate sites all 30-60 min apart (per guidelines) - empirically start Merrem (for gram - including antipseudomonal coverage) and Dapto (for Gram + including antiMRSA coverage)-- avoiding vanco given ESRD - Patient with indwelling PPM and mediport AND receives PD. BC pending. Exact etiology unclear but this is very complicated (3) Hypothyroidism: Plan: S/P Thyroidectomy - on Synthroid at - home alternating 125mcg q2d and 150mcg every other 2 days - last available for our review is 2018 where this was 3- so appeared to be suppressed. - Acute illness/sepsis triggering ? - T4 250mcg IV given in the ED - continue Synthroid but at increased dose (175mcg daily as opposed to alternating with lower doses) - will need FU TSH in 6 weeks (4) Elevated troponin I level: Plan: Troponin 0.864 without CP. He does have inverted Twaves in the anteroseptal leads but this is not a new findings. - Likely demand ischemia from hypotension, syncope and mostly in part from his ERSD - ECHO -- as outlined above (5) CKD (chronic kidney disease), stage V: Plan: On peritoneal dialysis- states he restricts his oral fluid to 48 ounces per day - peritoneal dialysis held upfront (x1) - Nephrology consulted to manage fluid balance. Appreciate recommendations (6) DM type 2 (diabetes mellitus, type 2): Plan: DM II- appears to be diet controlled - FBS 120 this am - Aspart sliding scale- no carb coverage at this time (7) Thrombocytopenia: Plan: - chronic and likely related to his ongoing Chemotherapy - is stable - would advise stopping ASA at this time (8) Rectal cancer: Plan: Remains on chemotherapuetic agents - records are unavailable for review (9) Pleural effusion: Plan: - concerning as it is LOCULATED. This could be infectious and with a loculated pleural effusion, patient would typically undergo VATS procedure. - This pleural effusion, however, is NOT new - other pressure issues at hand (10) Anemia: Plan: Chronic with active chemo and renal failure (AOCD) - his last transfusion was last week - HGB currently 9.2/stable - will follow Admission and Anticipated Discharge Date Admission Date: March 03, 2021 Subjective Patient seen on daily rounds today. "Feels fine" and asking to go home. Feels slightly bloated in his abdomen from not getting his peritoneal dialysis overnight but overall denies shortness of breath or edema of his lower extremities. Appears to be hemodynamically stable without any additional episodes of hypotension. Echocardiogram and carotid Dopplers done in lieu of his work-up for syncope. Final report is pending but cardiology reached out and concerned that he appears to have a large vegetation on the prosthetic aortic valve. Initial valve replacement was done at the [facility] around 2018. He has not had any fevers and has been in his usual state of health up until his syncopal event yesterday morning. Again feels well today. He has not had any fever spikes and his white blood cell count has remained normal. Review of Systems Review of Systems: All systems reviewed and are unremarkable except as noted in HPI and below Denies fevers, chills, headache, nasal congestion, sore throat, cough, chest pain, shortness of breath, palpitations, orthopnea, PND, abdominal pain, nausea, vomiting, diarrhea, constipation, dysuria, hematuria, frequency, back pain, joint pain or swelling, easy bruising or bleeding, skin lesions or rashes. Physical Exam Physical Exam: General: Resting comfortably in his hospital bed. He does not appear ill or toxic. NAD. HEENT: Head is AT/NC buccal mucosa is moist and pink Neck: No JVD. Negative hepatojugular reflex Cardiac: RRR with 2/6 OSCAR Lungs: CTA without W/R/R Abdomen: Normoactive X4. Slight abd distention. Extremities: No peripheral clubbing cyanosis or edema Neuro: A&O X4 cranial nerves II through XII are grossly intact no focal neuro deficits Skin: No obvious skin lesions or rashes Psych: Appropriate affect pleasant and cooperative Results & Data Results & Data ([facility]) Vital Signs (Past 12 Hours) Vital Signs Temp Pulse Pulse Resp BP Pulse Ox 03/04/21 11:23 36.6 C 88 18 158/70 H 100 03/04/21 09:54 109 H 03/04/21 07:44 36.8 C 86 18 123/60 99 03/04/21 06:19 84 03/04/21 03:37 36.7 C 82 20 110/61 99 PG Care Time/CCT Total # of Minutes Spent Total Time Spent with Patient: Total time spent is greater than 50% in coordination of care (as documented) at patient's floor/unit and/or counseling patient: Coding Level of Care Code 90454 Subseq Hosp Care Lvl 3 Diagnoses Syncope R55 Hypothyroidism E03.9 Elevated troponin I level R77.8 CKD (chronic kidney disease), stage V N18.5 DM type 2 (diabetes mellitus, type 2) E11.9 Rectal cancer C20 Pleural effusion J90 Anemia D64.9 Prosthetic valve endocarditis T82.6XXA; I38 Thrombocytopenia D69.6
[2021-03-05] MEDS: LEVOTHYROXINE SODIUM 175 MCG TABLET PO SCH (06:01)
[2021-03-05 07:31] LABS: Anisocytosis Present; Basophils # (auto) 0.05 K/uL (0-0.2); Basophils % (auto) 0.5 %; Eosinophils # (auto) 0.33 K/uL (0-0.5); Eosinophils % (auto) 3.5 %; Hematocrit (blood only) 27.9 % (42-52); Immature Granulocytes # (auto) 0.04 K/uL (0.00-0.02); Immature Granulocytes % (auto) 0.4 %; Lymphocytes % (auto) 6.3 %; Mean Corpuscular Hemoglobin 32.7 pg (25-34); Mean Corpuscular Hgb Conc 32.3 g/dL (32-36); Mean Corpuscular Volume 101.5 fL (80-100); Monocytes # (auto) 0.79 K/uL (0.11-0.59); Monocytes % (auto) 8.3 %; Neutrophils # (auto) 7.66 K/uL (1.4-6.5); Nucleated RBC # (auto) 0.08 K/uL (0-0); Nucleated RBC % (auto) 0.8 %; Platelet Count 48 K/uL (130-400); Platelet Estimate Decreased (Normal); Poikilocytosis Present; RDW Coefficient of Variation 22.9 % (11.5-14.5); RDW Standard Deviation 80.6 fL (36.4-46.3); Red Blood Count 2.75 M/uL (4.7-6.1); White Blood Count 9.47 K/uL (4.8-10.8)
[2021-03-05 07:44] LABS: BUN Creatinine Ratio 5.4 (10-20); Creatinine Clr Calc Pharmacy 7.6 ml/min; Est GFR (African American) 6.7 ml/min; Est GFR (Non-African American) 5.8 ml/min; Magnesium 1.6 mg/dl (1.8-2.4); Potassium 3.7 mmol/L (3.5-5.1)
--- NOTE | 2021-03-05 08:15 | Electrocardiogram Report ---
Test Reason : Blood Pressure : / mmHG Vent. Rate : 088 BPM Atrial Rate : 088 BPM P-R Int : 120 ms QRS Dur : 174 ms QT Int : 474 ms P-R-T Axes : 000 -47 114 degrees QTc Int : 573 ms Atrial-sensed ventricular-paced rhythm Abnormal ECG When compared with ECG of 04-MAR-2021 01:01, (unconfirmed) Vent. rate has increased BY 5 BPM Confirmed by Berny Gomes ([id number]) on 03/04/2021 2:17:15 PM Also confirmed by Berny Gomes ([id number]), art editor Chauncey Pham ([id number]) on 03/05/2021 8:14:54 AM Referred By: REFERRED SELF Confirmed By:Berny Gomes
[2021-03-05] MEDS: MIDODRINE HCL 2.5 MG TAB PO SCH ×2 (08:27→20:53)
[2021-03-05] MEDS: PANTOprazole 40 MG TAB PO SCH (08:27)
[2021-03-05] MEDS: HEPARIN SOD 5,000 UNIT/0.5 ML VIAL SQ SCH ×2 (08:28→20:51)
[2021-03-05] MEDS: CHOLECALCIFEROL 1,000 UNITS 25 MCG TAB PO SCH (08:28)
[2021-03-05] MEDS: DOCUSATE SODIUM 100 MG CAP PO SCH ×2 (08:28→20:44)
[2021-03-05] MEDS: INSULIN ASPART PER UNIT SC SCH ×4 (08:29→21:17)
--- NOTE | 2021-03-05 09:16 | Cardiology Progress Note ---
Date of Service March 05, 2021 Assessment & Plan (1) Syncope: Plan: IMPRESSIONS: 1. Dual-chamber pacemaker secondary to complete heart block. 2. History of bioprosthetic mitral valve replacement with slightly elevated gradients secondary to endocarditis. 3. Bioprosthetic aortic valve and repair of the ascending aortic root and ascending aorta with a #23 valve with normal gradients. 4. Preserved left ventricular systolic function. 5. 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 6. End-stage renal disease on peritoneal dialysis. 7. Extensive prior orthopedic surgery. 8. Hgmkifti-[id number]-sgkktv pulmonary hypertension, which was described as a combination of pulmonary arterial and pulmonary venous hypertension. 9. Rectal carcinoma, currently undergoing chemotherapy and radiation. Echo performed shows normal LVF, no RWMA, EF 55-60%, aortic prosthesis well seatic, large vegetation or mass on the aortic valve with independent motion measuring 2x1 cm, at least moderate aortic insufficiency. RVSP is 40-50mmHg. Normal gradients of the well seated mitral prosthetic valve. I discussed this finding with him and he elects to transfer to [facility] where his previous surgeries were performed. Blood cultures are pending, initial 24 hour is negative for growth. Antibiotics have been initiated by the hospitalists. He should also have fungal cultures and allow a weeks worth of growth for the blood cultures to enable time to see if hyphae grow. He has a mildly increased troponin, no chest pain. This is likely due to demand ischemia/ESRD. He does have some mild ST depression in his lateral leads but no WMA on echo. His description of his syncopal event could possibly be due to hypotension but his description of twitching and not waking up in bed makes me concerned for seizure activity. He did not have a post ictal period or loss of control of bowel or bladder brain imaging may be warranted to rule out metastasis. He has a pacemaker device interrogation pending. He should continue midodrine 2.5 mg bid. An additional consideration is that the large vegetation could be obstructing his outflow tract. Given the likely long wait to get into [facility] and Mr. Brown is now fairly stable with ability to take off fluid with peritoneal dialysis and improvement in his bps with midodrine, he can likely wait at home with a PICC and IV abx until [facility] is ready for him. This was discussed with the hospitalists. They are in discussion with [facility] cardiology who agrees with this plan. The hospitalists intend to await input from infectious disease before setting up a discharge. This will take 24 -48 hours to hear from ID so it will give time to see the pacemaker interrogation first. Admission and Anticipated Discharge Date Admission Date: March 03, 2021 Subjective Mr. Brown dialyzed over a liter overnight and is feeling less bloated. No chest pain, no palpitations or lightheadedness. His bp is low this morning following dialysis. Review of Systems Review of Systems: All systems reviewed & are unremarkable except as noted in HPI & below Physical Exam Constitutional: WD/WN, vitals as above Respiratory: normal respiratory effort, lungs clear to auscultation Cardiovascular: Rate/Rhythm: regular rate and regular rhythm Heart Sounds: + murmur (holosystolic lusb 05/05) Extremities: + edema Skin: no rashes, warm and dry Neurologic: moves all extremities and awake Psychiatric: A+Ox3, euthymic affect Results & Data ([facility]) Vital Signs (Past 12 Hours) Vital Signs Temp Pulse Pulse Pulse Resp BP Pulse Ox 03/05/21 08:10 36.4 C L 83 14 03/05/21 07:35 36.4 C L 83 14 89/45 L 90 03/05/21 07:19 84 03/05/21 04:37 36.9 C 85 18 102/49 L 91 03/05/21 00:00 87 03/04/21 23:40 37.5 C 88 18 114/49 L 91 (1) Syncope Syncope type: unspecified Qualified Code(s): R55 - Syncope and collapse
--- NOTE | 2021-03-05 10:14 | Ultrasound Report ---
BILATERAL CAROTID DOPPLER STUDY HISTORY: syncope COMPARISON: None. TECHNIQUE: Real-time, grayscale, and color Doppler sonography of the carotid arteries was performed. Imaging reviewed in the transverse and longitudinal planes. All measurements were calculated based on NASCET criteria. FINDINGS: Antegrade flow is seen in the bilateral vertebral arteries. The brachial pressures were not obtained. Mild to moderate calcified plaque within the bilateral bifurcations. The peak systolic velocity within the right ICA is 116 cm/s. The right systolic ratio is 1.8. The peak systolic velocity within the left ICA is 114 cm/s. The left systolic ratio is 1.6. Mild stenosis within the right external carotid artery with a peak velocity of 142 cm/s IMPRESSION: No hemodynamically significant stenosis seen within the bilateral common or internal carotid arteries . Mild stenosis of the right external carotid artery. ACT 112: Negative or not required by law. Electronically signed by: Greyson Castillo M.D. 03/05/2021 10:13 AM
--- NOTE | 2021-03-05 10:32 | Nephrology Progress Note ---
Date of Service March 05, 2021 Assessment & Plan (1) ESRD (end stage renal disease) on dialysis: Plan: had 1.2 L UF yesterday; chemistries and volume status acceptable. he has baseline lability in his systolic blood pressures and do not consider him to have worrisome bp at this time. 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 cont midodrine 2.5 mg bid; no abd pain or GI sx; no indication for peritonitis eval >continue PD this evening if still in house with low fluid removal rx > 5 x 2.5L exchs all 1.5%; cannot do OP rx d/t formulary issues -FIDEL contraindicated d/t active CA dx; transfuse prn (2) Prosthetic valve endocarditis: Plan: f/u final TTE report; awaiting [facility] transfer; on empiric meropenem and daptomycin; blood cultures pending; concerning that vegetations may relate to CA in some way; hx given of events before admission concerning for seizure like features; continue supportive care Admission and Anticipated Discharge Date Admission Date: March 03, 2021 Subjective no BM since admission but feels he will move today; edema unchanged; no worsening sob; no further MS changes; describes 2 episodes of passing out before admission where saw his eyes roll back in his head and he had altered MS/"thousand yard stare" and not talking. no abd pain, no n/v; no issues w/ PD. Review of Systems Review of Systems: All systems reviewed & are unremarkable except as noted in Subjective Physical Exam Constitutional: well developed and well nourished sitting up in chair on ra Eyes: EOM intact bilaterally ENMT: Ears: no external ear abnormality Nose: no external nose abnormality Mouth: + dry oral mucous membranes Neck: no nuchal rigidity Respiratory: normal respiratory effort Auscultation: + diminished lung sounds and + crackles (R base) Cardiovascular: Rate/Rhythm: regular rate and regular rhythm Heart Sounds: + murmur Extremities: + edema Gastrointestinal (Abdomen): Inspection/Auscultation: normal bowel sounds Percussion/Palpation: abdomen soft; abdomen nontender PD cath present Musculoskeletal: Extremities: strength 5/5 throughout Skin: no rashes, warm and dry Neurologic: holder, fluent speech, no tremor Psychiatric: Orientation: alert and oriented x 3 Results & Data ([facility]) Vital Signs (Past 12 Hours) Vital Signs Temp Pulse Pulse Pulse Resp BP Pulse Ox 03/05/21 08:10 36.4 C L 83 14 03/05/21 07:35 36.4 C L 83 14 89/45 L 90 03/05/21 07:19 84 03/05/21 04:37 36.9 C 85 18 102/49 L 91 03/05/21 00:00 87 03/04/21 23:40 37.5 C 88 18 114/49 L 91 Laboratory Results 03/05/21 06:16 03/05/21 06:16 Diagnostic Findings TTE reported from admission as normal LVF, no RWMA, EF 55-60%, aortic prosthesis with large vegetation or mass on the aortic valve with independent motion measuring 2x1 cm, at least moderate aortic insufficiency; RVSP 40-50mmHg. Normal gradients on the well seated mitral prosthetic valve. cxr 03/03/21 1. Cardiomegaly without radiographic evidence of congestive failure. 2. There is a loculated pleural effusion at the right lung base with associated right basilar opacities. This is similar in appearance to recent prior studies. 3. The left lung is clear.
--- NOTE | 2021-03-05 11:53 | Electrocardiogram Report ---
Test Reason : Blood Pressure : / mmHG Vent. Rate : 085 BPM Atrial Rate : 088 BPM P-R Int : 000 ms QRS Dur : 218 ms QT Int : 538 ms P-R-T Axes : 000 -50 116 degrees QTc Int : 640 ms Ventricular-paced rhythm Abnormal ECG When compared with ECG of 04-MAR-2021 10:49, Vent. rate has decreased BY 3 BPM Confirmed by Berny Gomes ([id number]) on 03/05/2021 11:53:05 AM Referred By: REFERRED SELF Confirmed By:Berny Gomes
--- NOTE | 2021-03-05 11:55 | Electrocardiogram Report ---
Test Reason : Blood Pressure : / mmHG Vent. Rate : 082 BPM Atrial Rate : 082 BPM P-R Int : 106 ms QRS Dur : 168 ms QT Int : 504 ms P-R-T Axes : 106 -50 115 degrees QTc Int : 588 ms Atrial-sensed ventricular-paced rhythm Abnormal ECG When compared with ECG of 05-MAR-2021 06:06, (unconfirmed) Vent. rate has decreased BY 3 BPM Confirmed by Berny Gomes ([id number]) on 03/05/2021 11:55:19 AM Referred By: REFERRED SELF Confirmed By:Berny Gomes
[2021-03-05 12:12] LABS: Hepatitis B Surface Antibody Non-Immune
[2021-03-05 12:23] LABS: Hepatitis B Surf Ag Rflx Conf Neg (Neg)
--- NOTE | 2021-03-05 14:55 | Hospitalist Progress Note ---
Date of Service March 05, 2021 Assessment & Plan (1) Syncope: Plan: Syncopal episodes x2-exact etiology unclear here * BP has been running low at home following PD (per Nephrology) and was reported to be 77 systolic JAILER * given IVF in route and BP 95/55 upon arrival * IVF continued and his PD held that night and his BP stablized * PD resumed hospitalize night #2 with a subsequent BP of 89/49 but did rebound to 145/65 (seems to be related to fluid shift). BP NOT DROPPING OR LOW OTHERWISE * Syncope W/U done including CT of the head, echo and carotid duplex * CT head: no acute pathology * Carotid Duplex showing mild stenosis of the Right External Carotid Artery without significant stenosis * Echo showing large mass on the Aortic valve concerning for vegetation (this was not there in 06/20)--> ?? is this causing outlet obstruction and with the fluid shift with dialysis (which would cause preload reduction) he gets syncopal?? see below as outlined * TSH 66 with free T4 of 0.85- likely contributing factor (synthroid increased to 175mcg daily as opposed to alternating doses) (2) Prosthetic valve endocarditis: Plan: * as outlined above, large mass on AV that was not seen in May that is concern ing for Endocarditis * see by our cardiology team who is recommending transfer to the [facility] (where his initial surgery was done in 2017) * BC done in the ED but with Echo report, I did repeat 3 sets of blood culture from different sites (all 30 min apart) and thus far-- NGTD!! No obvious source * empirically started on Merrem (for gram - including antipseudomonal coverage) and Dapto (for Gram + including antiMRSA coverage)-- avoiding vanco given ESRD * Patient with indwelling PPM and mediport AND receives PD. BC pending. Exact etiology unclear but this is very complicated (empirically with the mediport and PPM that would both terminate at the heart and could seed infection) * Patient accepted at the [facility] (Dr. Caldwell) but unfortunately with Covid and current pandemic-- there is lack of beds and I was told would likely be DAYS until a bed became available. That being said, patient does not clinically sppear ill or toxic. Could this be a sterile vegetation? In addition to having a call out to the [facility], I do have a call out to Dr. Coates (who replaced patients AV/MV initially) to get his thoughts. At this time, it would not be ideal but pending his remains HD stable, could possibly consider sending him home with IV abx's and an OP appts (pending his rehabilitation inspector agrees with this) as I do not believe that he would be a great surgical candidate anyway given his active cancer and thrombocytopenia d/t chemo * will consult ID to help guide choice of ABX as I have no culture data to guide treatment * will add fungal blood cultures (3) Hypothyroidism: Plan: S/P Thyroidectomy - on Synthroid at - home alternating 125mcg q2d and 150mcg every other 2 days - last available for our review is 2018 where this was 3- so appeared to be suppressed. - Acute illness/sepsis triggering ? - T4 250mcg IV given in the ED - continue Synthroid but at increased dose (175mcg daily as opposed to alter nating with lower doses) - will need FU TSH in 6 weeks (4) Elevated troponin I level: Plan: Troponin 0.864 without CP. He does have inverted Twaves in the anteroseptal leads but this is not a new findings. - Likely demand ischemia from hypotension, syncope and mostly in part from his ERSD - ECHO -- as outlined above (5) CKD (chronic kidney disease), stage V: Plan: On peritoneal dialysis- states he restricts his oral fluid to 48 ounces per day - peritoneal dialysis held upfront (x1) - Nephrology consulted to manage fluid balance. Appreciate recommendations - given the large vegetation and risk that this is causing an outlet obstruction, I would think that we wouldn't want to decrease preload too much. Will reach out to Nephro to see if parameters need adjusted (6) DM type 2 (diabetes mellitus, type 2): Plan: DM II- appears to be diet controlled - FBS 120 this am - Aspart sliding scale- no carb coverage at this time (7) Thrombocytopenia: Plan: - chronic and likely related to his ongoing Chemotherapy - is stable - would advise stopping ASA at this time (8) Rectal cancer: Plan: Remains on chemotherapuetic agents - records are unavailable for review (9) Pleural effusion: Plan: - concerning as it is LOCULATED. This could be infectious and with a loculated pleural effusion, patient would typically undergo VATS procedure. - This pleural effusion, however, is NOT new - other pressure issues at hand (10) Anemia: Plan: Chronic with active chemo and renal failure (AOCD) - his last transfusion was last week - HGB currently 9.2/stable - will follow Admission and Anticipated Discharge Date Admission Date: March 03, 2021 Subjective Patient seen on daily rounds today. Did have resumption of his PD lastnight. BP was 87 systolic this morning. Patient was not dizzy or lightheaded. Current BP is 145/62. Patient has otherwise been HD stable and afebrile. He denies subjective F/C, CP, SOB, abd pain, N/V. Nursing voices no c/c. Review of Systems Review of Systems: All systems reviewed and are unremarkable except as noted in HPI and below Denies fevers, chills, headache, nasal congestion, sore throat, cough, chest pain, shortness of breath, palpitations, orthopnea, PND, abdominal pain, nausea, vomiting, diarrhea, constipation, dysuria, hematuria, frequency, back pain, joint pain or swelling, easy bruising or bleeding, skin lesions or rashes. Physical Exam Physical Exam: General: Resting comfortably in his bedside chair. Does not appear ill or toxic. NAD. HEENT: Head is AT/NC buccal mucosa is moist and pink Neck: No JVD. Negative hepatojugular reflex Cardiac:distant heart sounds with 1/6 OSCAR Lungs: CTA without W/R/R Abdomen: Normoactive X4. Soft and nontender in all quadrants. peritoneal catheter in place. Extremities: No peripheral clubbing cyanosis or edema Neuro: A&O X4 cranial nerves II through XII are grossly intact no focal neuro deficits Skin: No obvious skin lesions or rashes Psych: Appropriate affect pleasant and cooperative Results & Data Results & Data ([facility]) Vital Signs (Past 12 Hours) Vital Signs Temp Pulse Pulse Pulse Resp BP Pulse Ox 03/05/21 11:00 36.6 C 90 15 145/62 H 95 03/05/21 08:10 36.4 C L 83 14 03/05/21 07:35 36.4 C L 83 14 89/45 L 90 03/05/21 07:19 84 03/05/21 04:37 36.9 C 85 18 102/49 L 91 PG Care Time/CCT Total # of Minutes Spent Total Time Spent with Patient: Total time spent is greater than 50% in coordination of care (as documented) at patient's floor/unit and/or counseling patient: Prolonged Care Time 60 min including time spent with patient, coordination with out cardiology group and [facility] Coding Level of Care Code 60058 Subseq Hosp Care Lvl 3 Diagnoses Syncope R55 Prosthetic valve endocarditis T82.6XXA; I38 Hypothyroidism E03.9 Elevated troponin I level R77.8 CKD (chronic kidney disease), stage V N18.5 DM type 2 (diabetes mellitus, type 2) E11.9 Thrombocytopenia D69.6 Rectal cancer C20 Pleural effusion J90 Anemia D64.9
[2021-03-05] MEDS: MEROPENEM 500 MG in SYRINGE 0 ML IV SCH (17:14)
[2021-03-05] MEDS: SUCROFERRIC OXYHYDROXIDE 500 MG CHEW PO SCH (17:16)
[2021-03-06] MEDS: LEVOTHYROXINE SODIUM 175 MCG TABLET PO SCH (06:04)
[2021-03-06 06:29] LABS: Mean Corpuscular Hgb Conc 32.7 g/dL (32-36); Nucleated RBC # (auto) 0.11 K/uL (0-0); Nucleated RBC % (auto) 1.1 %
[2021-03-06 06:44] LABS: Hematocrit (blood only) 28.1 % (42-52); Hemoglobin 9.2 g/dL (14.0-18.0); Mean Corpuscular Hemoglobin 32.9 pg (25-34); Mean Corpuscular Volume 100.4 fL (80-100); RDW Coefficient of Variation 22.6 % (11.5-14.5); White Blood Count 9.62 K/uL (4.8-10.8)
[2021-03-06 06:57] LABS: Anisocytosis Present; Basophils # (auto) 0.06 K/uL (0-0.2); Basophils % (auto) 0.6 %; Eosinophils # (auto) 0.31 K/uL (0-0.5); Eosinophils % (auto) 3.2 %; Immature Granulocytes # (auto) 0.06 K/uL (0.00-0.02); Immature Granulocytes % (auto) 0.6 %; Lymphocytes # (auto) 0.28 K/uL (1.2-3.4); Lymphocytes % (auto) 2.9 %; Monocytes # (auto) 1.19 K/uL (0.11-0.59); Monocytes % (auto) 12.4 %; Neutrophils # (auto) 7.72 K/uL (1.4-6.5); Neutrophils % (auto) 80.3 %; Ovalocytes 1+; Platelet Count 46 K/uL (130-400); Platelet Estimate Decreased (Normal)
[2021-03-06 07:27] LABS: Albumin Globulin Ratio 0.5 (0.9-2); Albumin Level 1.8 gm/dl (3.4-5.0); BUN Creatinine Ratio 5.4 (10-20); Bilirubin,Total 0.7 mg/dl (0.2-1); Calcium 7.5 mg/dl (8.5-10.1); Creatinine Clr Calc Pharmacy 7.4 ml/min; Est GFR (African American) 6.5 ml/min; Est GFR (Non-African American) 5.6 ml/min; Globulin 3.8 gm/dl (2.5-4.0); Potassium 3.7 mmol/L (3.5-5.1); Total Protein 5.6 gm/dl (6.4-8.2)
--- NOTE | 2021-03-06 08:29 | Nephrology Progress Note ---
Date of Service March 06, 2021 Assessment & Plan (1) ESRD (end stage renal disease) on dialysis: Plan: had 1.2 L UF again overnight; chemistries and volume status acceptable though mild vol OL (related in part to hypoalbuminemia). he has baseline lability in his systolic blood pressures and do not consider him to have worrisome bp at this time. he did have DAG [place]ATER syncopal event x 2 (though some details of hx sound seizure like); work up to date unrevealing. cont midodrine 2.5 mg bid; no abd pain or GI sx; no indication for peritonitis eval >continue PD this evening with low fluid removal rx but more exchanges for better clearance > 6 x 2L exchs all 1.5%; cannot do OP rx d/t formulary issues -FIDEL contraindicated d/t active CA dx; transfuse prn -continue bowel regimen (2) Prosthetic valve endocarditis: Plan: awaiting [facility] transfer; on empiric meropenem and daptomycin; blood c ultures pending but all cxs ngtd; he does have indwelling ortho and cardiac hardware including aortic graft so certainly risk ff for endocarditis; concerning that vegetation may actually be a mass given negative cxs; that it may relate to CA in some way; hx given of events before admission concerning for seizure like features; continue supportive care; appreciate dialogue w/ cardiology on whether/how to delineate if a mass on valve and other considerations such as of fungemia or HACEK organisms Admission and Anticipated Discharge Date Admission Date: March 03, 2021 Subjective seen on rounds 0930; no sob, tolerating midodrine; edema a bit worse; small bm; bp better/no orthostatic sx. Review of Systems Review of Systems: All systems reviewed & are unremarkable except as noted in Subjective Physical Exam Constitutional: well developed and well nourished Eyes: EOM intact bilaterally ENMT: Ears: no external ear abnormality Nose: no external nose abnormality Mouth: + dry oral mucous membranes Neck: no nuchal rigidity Respiratory: normal respiratory effort Auscultation: + diminished lung sounds and + crackles (R base) Cardiovascular: Rate/Rhythm: regular rate and regular rhythm Heart Sounds: + murmur Extremities: + edema Gastrointestinal (Abdomen): Inspection/Auscultation: normal bowel sounds Percussion/Palpation: abdomen soft; abdomen nontender Musculoskeletal: Extremities: strength 5/5 throughout Skin: no rashes, warm and dry Neurologic: holder, fluent speech, no tremor; clearly tired today Psychiatric: Orientation: alert and oriented x 3 Results & Data ([facility]) Vital Signs (Past 12 Hours) Vital Signs Temp Pulse Pulse Resp BP Pulse Ox 03/06/21 06:47 36.9 C 81 19 128/55 L 94 03/06/21 03:26 37.4 C 84 19 136/57 L 92 03/06/21 00:09 85 03/05/21 23:57 36.7 C 89 18 135/59 L 93 Laboratory Results 03/06/21 05:55 03/06/21 05:55
[2021-03-06] MEDS: SUCROFERRIC OXYHYDROXIDE 500 MG CHEW PO SCH ×3 (08:46→17:10)
[2021-03-06] MEDS: CHOLECALCIFEROL 1,000 UNITS 25 MCG TAB PO SCH (08:47)
[2021-03-06] MEDS: MIDODRINE HCL 2.5 MG TAB PO SCH (08:48)
[2021-03-06] MEDS: HEPARIN SOD 5,000 UNIT/0.5 ML VIAL SQ SCH (08:48)
[2021-03-06] MEDS: DOCUSATE SODIUM 100 MG CAP PO SCH (08:48)
[2021-03-06] MEDS: PANTOprazole 40 MG TAB PO SCH (08:49)
[2021-03-06] MEDS: DAPTOmycin 350 MG in SYRINGE 0 ML IV SCH (08:56)
--- NOTE | 2021-03-06 09:51 | Cardiology Progress Note ---
Date of Service March 06, 2021 Assessment & Plan Admission and Anticipated Discharge Date Admission Date: March 03, 2021 Subjective The patient was seen this morning with Dr. Bower. He denies any chest pain or chest pressure. Denies any fevers or chills or night sweats. He denies any rigors. His shortness of breath is most present when his blood pressure is low. With midodrine his blood pressures have improved here in the hospital. He has been able to take some fluid off with his peritoneal dialysis. Does feel fatigued and washed out. Denies any palpitations. He does look chronically ill. He has had no further episodes like he had before he came to the hospital. Results & Data ([facility]) Vital Signs (Past 12 Hours) Vital Signs Temp Pulse Pulse Resp BP Pulse Ox 03/06/21 09:14 36.9 C 81 19 03/06/21 06:47 36.9 C 81 19 128/55 L 94 03/06/21 03:26 37.4 C 84 19 136/57 L 92 03/06/21 00:09 85 03/05/21 23:57 36.7 C 89 18 135/59 L 93 He is awake alert and oriented x3 he looks chronically ill HEENT: 2+ carotid upstrokes Lungs: Clear to auscultation bilaterally no rales rhonchi or wheezing Heart regular rate and rhythm (increased heart rate) with a prominent holodiastolic murmur loudest at the lower left sternal border Abdomen: Soft nontender distended positive bowel sounds Extremities: Trace bilateral lower extremity edema IMPRESSIONS: 1A. 2.1 cm relatively symmetrically round mass attached to the LVOT side of the bioprosthetic aortic valve replacement 1B. Dual-chamber pacemaker secondary to complete heart block. 2. History of bioprosthetic mitral valve replacement with slightly elevated gradients secondary to endocarditis. 3. Bioprosthetic aortic valve and repair of the ascending aortic root and ascending aorta with a #23 valve with normal gradients. 4. Preserved left ventricular systolic function. 5. 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 6. End-stage renal disease on peritoneal dialysis. 7. Extensive prior orthopedic surgery. 8. [id number] pulmonary hypertension, which was described as a combination of pulmonary arterial and pulmonary venous hypertension. 9. Rectal carcinoma, currently undergoing chemotherapy and radiation. In discussion with Dr. Bower who posed a number of good questions this morning I will try to answer as she had asked in her note. We did discuss with microbiology yesterday and added fungal cultures on the outside that he would have a fungal infection. We also asked that they hold the cultures for 7 days to rule out HACEK organisms which take longer to grow. To Dr. Bower's question especially in light of the fact that his blood cultures are negative is could this be something else. I have seen colon cancer metastasized to the pericardium and he does not have a pericardial effusion but I have never seen it metastasized to her valve. That does not mean its not possible. The other question is whether this could be thrombus given the fact that he is hypercoagulable given his colon cancer. Again this would be unusual given the high velocity and flow across the left ventricular outflow tract and aortic valve. This would be more likely seen on the low-pressure side tricuspid valve or pulmonic valve. I did suggest we could do a limited transthoracic echo specifically looking at the 2.1 cm lesion and giving echo contrast to see if it lights up with contrast. If it does it would suggest it is vascular in origin which would raise the question as to whether it is metastatic disease. If it does not light up then it adds to the question as to whether this could be thrombus. If this were endocarditis the other concern would be that his aortic root and ascending aorta are made of prosthetic graft at this point and we would assume that it would be infected as well. One option would be to consider a tagged WBC scan to specifically look at his aortic valve root and ascending aorta. If it lights up on the study it would suggest that he has an infection. With regards to the question of cardiac MRI he does not have an MRI compatible device which makes tissue characterization of the mass virtually impossible. Although the mass is 2.1 cm there is a small chance that it could cause LVOT obstruction which would cause him to pass out but it does not sound like he lost postural tone. Any of his tests are negative here given the long wait to go to [facility] I would have his drive him to the emergency room there given the fact he is at all of his heart surgery and his complex orthopedic surgery done there. This was discussed with the primary service as well.
[2021-03-06] MEDS: INSULIN ASPART PER UNIT SC SCH ×3 (09:58→17:32)
--- NOTE | 2021-03-06 13:10 | Electrocardiogram Report ---
Test Reason : Blood Pressure : / mmHG Vent. Rate : 084 BPM Atrial Rate : 084 BPM P-R Int : 000 ms QRS Dur : 166 ms QT Int : 460 ms P-R-T Axes : 094 -61 105 degrees QTc Int : 543 ms Ventricular-paced rhythm Abnormal ECG When compared with ECG of 05-MAR-2021 07:41, Vent. rate has increased BY 2 BPM Confirmed by Berny Gomes ([id number]) on 03/06/2021 1:09:52 PM Referred By: REFERRED SELF Confirmed By:Berny Gomes
[2021-03-06 14:32] LABS: Carcinoembryonic Antigen 10.9 ng/ml (0-2.5)
[2021-03-06 14:37] LABS: Hepatitis C IgG 13Yrs+Old_Rflx Neg (Neg)
[2021-03-06 14:46] LABS: Hepatitis B Surf Ag Rflx Conf Neg (Neg)
--- NOTE | 2021-03-06 15:08 | Discharge Summary ---
Date of Service March 06, 2021 Admission HPI Per Admitting Provider 51 YOM with past medical history of: Renal failure on peritoneal dialysis, pulmonary nodules, rectal cancer(receiving Xeloda ? FU infusion following), chronic pulmonary effusion, chronic anemia, endocarditis requiring aortic and mitral valve replacements, pacemaker secondary to complete heart block- DDDR, DMII, thyroid cancer s/p thyroidectomy in 2012, osteosarcoma 1982. Patient comes to the [facility] today for complaints os syncopal episodes x2 this morning associated with hypotension with his home BP machine reportedly with SBP in the 70s. In the EMD the patient had routine labs drawn, CXR, and interrogation of his pacemaker. He was given 20MEq potassium PO by the EMD and The hospitalist service was then consulted for admission. Patient reports that he had 2 episodes reported to him from his of his eyes staring blankly and "bugging out" and then "passing out". First episode occurred while he was in bed this morning, he was then able to get up and go get breakfast and start his day. He states that he did not feel dizzy or more fatigued at that time. The second episode occurred while he was washing himself up at the sink and reports that he fell back into the chair that his had for him. Further questioning reveals that he ate Outback last night, did his dialysis and had period where his legs got shaky and he felt week and needed assistance to get to bed. He reports he took all his medications as normal and that he continues to take his Synthroid as well. His labs were notable for TSH of 66 with a T4 0.85, PTT 62.7 and BG of 258. He also has Troponin elevated to 0.619. Patient also requires occasional blood transfusions for his anemia and his last transfusion was last week he believes. His normal HGB levels that we have are 7-9 range, he is noted to be 10.4 today. His WBC are normally 3-6 and are also at 9 today. Patient denies any feeling of illness and has no recollection of his episodes from this morning. Patient will be admitted to PCU for monitoring and following his symptoms/labs. Will obtain CT scan of his head to rule out any intracranial process with his history of CA, will obtain blood cultures to rule out infection. Re-evaluate his PTT and his TSH now. Will provide gentle hydration overnight as he appears hemoconcentrated on his labs, trend his Troponin I. Hold his peritoneal dialysis tonight with hypotension, syncope, and clinically dry on exam. His lungs are clear and denies any chest pain or discomfort. His Interrogation of his pacer is pending at this time. If his TSH is truly 66- this may explain his syncope- his pacemaker could be masking his bradycardia appears as his TSH was normal range on his admission in 2018. As above blood culture for infection rule out as well. He is normally not hyperglycemic to this extent, by review he has been getting hypotensive reports following dialysis and was to be started on midodrine 2.5mg PO BID. Principal Diagnosis 1. Concern for Prosthetic Valve Endocarditis 2. Aortic Valve Mass 3. Syncope- likely related to transient hypotension (see below) 4. Uncontrolled Hypothyroidism 5. Elevated Troponin Discharge Exam General: Resting comfortably in his bedside chair. Does not appear ill or toxic. NAD. HEENT: Head is AT/NC buccal mucosa is moist and pink Neck: No JVD. Negative hepatojugular reflex Cardiac:distant heart sounds with 1/6 OSCAR Lungs: CTA without W/R/R Abdomen: Normoactive X4. Soft and nontender in all quadrants. peritoneal catheter in place. Extremities: No peripheral clubbing cyanosis or edema Neuro: A&O X4 cranial nerves II through XII are grossly intact no focal neuro deficits Skin: No obvious skin lesions or rashes Psych: Appropriate affect pleasant and cooperative Discharge Data Allergies Allergy/AdvReac Type Severity Reaction Status Date / Time cefazolin Allergy Intermediate Hives Verified 03/03/21 20:02 fosaprepitant Allergy Chest Pain Verified 03/03/21 20:02 cephalexin AdvReac Mild GI symptoms Verified 03/03/21 20:02 Consultations 03/03/21 17:50 ED Decision to Admit Stat 03/03/21 23:04 Consult Nephrology Routine Assessment & Plan (1) ESRD (end stage renal disease) on dialysis: Plan: had 1.2 L UF again overnight; chemistries and volume status acceptable though mild vol OL (related in part to hypoalbuminemia). he has baseline lability in his systolic blood pressures and do not consider him to have worrisome bp at this time. he did have SCREENING UNIT REGISTERED NURSE syncopal event x 2 (though some details of hx sound seizure like); work up to date unrevealing. cont midodrine 2.5 mg bid; no abd pain or GI sx; no indication for peritonitis eval >continue PD this evening with low fluid removal rx but more exchanges for better clearance > 6 x 2L exchs all 1.5%; cannot do OP rx d/t formulary issues -FIDEL contraindicated d/t active CA dx; transfuse prn -continue bowel regimen (2) Prosthetic valve endocarditis: Plan: awaiting [facility] transfer; on empiric meropenem and daptomycin; blood cultures pending but all cxs ngtd; he does have indwelling ortho and cardiac hardware including aortic graft so certainly risk ff for endocarditis; concerning that vegetation may actually be a mass given negative cxs; that it may relate to CA in some way; hx given of events before admission concerning for seizure like features; continue supportive care; appreciate dialogue w/ cardiology on whether/how to delineate if a mass on valve and other considerations such as of fungemia or HACEK organisms 03/04/21 09:30 Consult Cardiology Routine IMPRESSIONS: 1A. 2.1 cm relatively symmetrically round mass attached to the LVOT side of the bioprosthetic aortic valve replacement 1B. Dual-chamber pacemaker secondary to complete heart block. 2. History of bioprosthetic mitral valve replacement with slightly elevated gradients secondary to endocarditis. 3. Bioprosthetic aortic valve and repair of the ascending aortic root and ascending aorta with a #23 valve with normal gradients. 4. Preserved left ventricular systolic function. 5. 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 6. End-stage renal disease on peritoneal dialysis. 7. Extensive prior orthopedic surgery. 8. Mnhskgbw-lc-orydlw pulmonary hypertension, which was described as a combination of pulmonary arterial and pulmonary venous hypertension. 9. Rectal carcinoma, currently undergoing chemotherapy and radiation. In discussion with Dr. Bower who posed a number of good questions this morning I will try to answer as she had asked in her note. We did discuss with microbiology yesterday and added fungal cultures on the outside that he would have a fungal infection. We also asked that they hold the cultures for 7 days to rule out HACEK organisms which take longer to grow. To Dr. Bower's question especially in light of the fact that his blood cultures are negative is could this be something else. I have seen colon cancer metastasized to the pericardium and he does not have a pericardial effusion but I have never seen it metastasized to her valve. That does not mean its not possible. The other question is whether this could be thrombus given the fact that he is hypercoagulable given his colon cancer. Again this would be unusual given the high velocity and flow across the left ventricular outflow tract and aortic valve. This would be more likely seen on the low-pressure side tricuspid valve or pulmonic valve. I did suggest we could do a limited transthoracic echo specifically looking at the 2.1 cm lesion and giving echo contrast to see if it lights up with contrast. If it does it would suggest it is vascular in origin which would raise the question as to whether it is metastatic disease. If it does not light up then it adds to the question as to whether this could be thrombus. If this were endocarditis the other concern would be that his aortic root and ascending aorta are made of prosthetic graft at this point and we would assume that it would be infected as well. One option would be to consider a tagged WBC scan to specifically look at his aortic valve root and ascending aorta. If it lights up on the study it would suggest that he has an infection. With regards to the question of cardiac MRI he does not have an MRI compatible device which makes tissue characterization of the mass virtually impossible. Although the mass is 2.1 cm there is a small chance that it could cause LVOT obstruction which would cause him to pass out but it does not sound like he lost postural tone. Any of his tests are negative here given the long wait to go to [facility] I would have his drive him to the emergency room there given the fact he is at all of his heart surgery and his complex orthopedic surgery done there. This was discussed with the primary service as well 03/05/21 11:34 Consult Infectious Diseases Routine 1. Patient awaiting transfer to [facility] 2. Continue empiric vancomycin and cefepime for now 3. Follow-up cultures (including fungal blood cultures) 4. Obtain most recent YASMIN echo report for comparison 5. Obtain a ALMA 6. Order Q fever, Bartonella, Brucella, Legionella, chlamydia, T. Whip, mycoplasma 7. Obtain AFB blood cultures 8. If tissue was ultimately obtained, sent for broad range PCR 9. Get consent been screened for HIV and acute hepatitis 03/06/21 12:49 Burn CD for patient Stat Ordered Studies 03/03/21 16:06 US venous doppler LE LT Stat IMPRESSION: 1. There is no sonographic evidence of acute deep venous thrombosis identified in the left lower extremity. 2. Calcifications along the wall of the mid superficial femoral vein and the popliteal vein may represent trace chronic thrombus. 3. Complex popliteal cyst. CT of the Head: IMPRESSION: There is no hemorrhage, mass effect, or evidence of acute territorial ischemia by CT criteria. 03/05/21 09:30 US carotid doppler BI Routine IMPRESSION: No hemodynamically significant stenosis seen within the bilateral common or internal carotid arteries. Mild stenosis of the right external carotid artery. 03/06/21 12:22 US liver Routine ordered BUT NOT YET PERFORMED BED NOW AVAILABLE FOR TRANSFER Hospital Course (1) Syncope: Syncopal episodes x2-exact etiology unclear here * BP has been running low at home following PD (per Nephrology) and was reported to be 77 systolic SCREENING UNIT REGISTERED NURSE * given IVF in route and BP 95/55 upon arrival * IVF continued and his PD held that night and his BP stablized * PD resumed hospitalize night #2 with a subsequent BP of 89/49 but did rebound to 145/65 (seems to be related to fluid shift). BP NOT DROPPING OR LOW OTHERWISE * Syncope W/U done including CT of the head, echo and carotid duplex * CT head: no acute pathology * Carotid Duplex showing mild stenosis of the Right External Carotid Artery without significant stenosis * Echo showing large mass on the Aortic valve concerning for vegetation (this was not there in 06/20)--> ?? is this causing outlet obstruction and with the fluid shift with dialysis (which would cause preload reduction) he gets syncopal?? see below as outlined * TSH 66 with free T4 of 0.85- likely contributing factor (synthroid increased to 175mcg daily as opposed to alternating doses) (2) Prosthetic valve endocarditis: * as outlined above, large mass on AV that was not seen in May that is concerning for Endocarditis * see by our cardiology team who is recommending transfer to the [facility] (where his initial surgery was done in 2018) * BC done in the ED but with Echo report, I did repeat 3 sets of blood culture from different sites (all 30 min apart) and thus far-- NGTD!! No obvious source * empirically started on Merrem (for gram - including antipseudomonal coverage) and Dapto (for Gram + including antiMRSA coverage)-- avoiding vanco given ESRD * Patient with indwelling PPM and mediport AND receives PD. BC pending. Exact etiology unclear but this is very complicated (empirically with the mediport and PPM that would both terminate at the heart and could seed infection) * Patient accepted at the [facility] (Dr. Caldwell) on 03/04/21, but unfortunately with Covid and current pandemic-- there was lack of beds and I was told would likely be DAYS until a bed became available. That being said, patient does not clinically appear acutely ill or toxic. Could this be a idalia rile vegetation? In addition to having a call out to the [facility], I do have a call out to Dr. Coates (who replaced patients AV/MV initially) to get his thoughts. At this time, it would not be ideal but pending his remains HD stable, could possibly consider sending him home with IV abx's and an OP appts (pending his fitness teacher agrees with this) as I do not believe that he would be a great surgical candidate anyway given his active cancer and thrombocytopenia d/t chemo * ID was consulted to help guide choice of ABX as I have no culture data to guide treatment who was able to see the patient on 03/06 and is recommending continuation of vancomycin/cefepime (which patient was not on this regimen. He has been started on Merrem/daptomycin as outlined above. This was the recommendations per the infectious disease Society of medicine, up-to-date, and the fitness teacher I spoke to at the [facility] agreed with this regimen). In addition, ID recommending the blood cultures (which have already been drawn), ALMA (which this was discussed with cardiology who did not feel that it would be of value at this time), along with Q fever, Bartonella, Brucella, Legionella, chlamydia, T whip, mycoplasma, AFB blood cultures and if tissue obtained, sending for broad range PCR along with HIV and acute hepatitis. These recommendations are just now available to me and have not y et been performed. We now have a bed available at the [facility] so would advise perhaps adding this to the work-up * fungal blood cultures added * Unfortunately, given the current pandemic and lack of staffour transportation team, administrative team, and case management team have all been working on transportation arrangements for this patient. The soonest they can get transportation for him is March 14. requesting to transfer him via private vehicle. (3) Hypothyroidism: S/P Thyroidectomy - on Synthroid at - home alternating 125mcg q2d and 150mcg every other 2 days - last available for our review is 2017 where this was 3- so appeared to be suppressed. - Acute illness/sepsis triggering ? - T4 250mcg IV given in the ED - continue Synthroid but at increased dose (175mcg daily as opposed to alternating with lower doses) - will need FU TSH in 6 weeks (4) Transaminitis: -This was a new finding as of 03/06 -denies abd pain -Total bilirubin normal at 0.7. AST/ALT elevated at 786 and 293 -Exact etiology unclear -Is this related to medication/abx therapy? Is this related to the hypotension that had been ongoing up until this point? -Would advise with holding statin for now to give him a drug holiday -Work-up started which included an acute hepatitis panel, CMV, EBV, GGT, alk. phos. isoenzymes and RUQ US (which was ordered but not completed as bed now available at ). - would advise following this (5) Elevated troponin I level: Troponin 0.864 without CP. He does have inverted Twaves in the anteroseptal leads but this is not a new findings. - Likely demand ischemia from hypotension, syncope and mostly in part from his ERSD - ECHO -- as outlined above (6) CKD (chronic kidney disease), stage V: On peritoneal dialysis- states he restricts his oral fluid to 48 ounces per day - peritoneal dialysis held upfront (x1) - Nephrology consulted to manage fluid balance. Appreciate recommendations - given the large vegetation and risk that this is causing an outlet obstruction, I would think that we wouldn't want to decrease preload too much. - Nephro on board-- appreciate recommendations (7) DM type 2 (diabetes mellitus, type 2): DM II- appears to be diet controlled - FBS 120 this am - Aspart sliding scale with no carb coverage (8) Thrombocytopenia: - chronic and likely related to his ongoing Chemotherapy - is stable - ASA stopped at this time (9) Rectal cancer: Remains on chemotherapuetic agents - records are unavailable for review (10) Pleural effusion: - concerning as it is LOCULATED. This could be infectious and with a loculated pleural effusion, patient would typically undergo VATS procedure. - This pleural effusion, however, is NOT new - other pressure issues at hand (see above) (11) Anemia: Chronic with active chemo and renal failure (AOCD) - his last transfusion was last week - HGB currently 9.2/stable - will follow Total Time Total Time Spent Total Time Spent (In Minutes): 90 min including time spent with patient, his , D/W admissions/case mgmt (for transportation issues), Attending provider, coordination of care and preparation of documentation Discharge Plan Discharge Items Patient Disposition: Transfer Acute Care Hospital Reason For Visit: SYNCOPE, ESRD Discharge Diagnosis: 1. Prosthetic Valve Mass- ? endocarditis/vegetation 2. Transaminitis- exact etiology unclear at this time 3. Elevated troponin- ? supply/demand mismatch vs chronic from ESRD 4. Syncope 5. Uncontrolled Hypothyroidism 6. Thrombocytopenia Activity: As commented below Activity Comment: per accepting facility Non-emergency contact: Primary Care Provider and Chief Of Field Operations Call non-emergency contact if: you have any medication questions Follow-up/Referrals: Berny Shrestha MD [Primary Care Provider] - Diet: Carb Consistent or DM2 and Dialysis Renal Addtl Attending Provider Instructions: - you were hospitalized following 2 [id number]-[id number] syncopal events (passing out) - in working this up, you were found to have low blood pressure (likely the exact cause of the syncope) - in addition, you were found to to have a mass on your aortic valve (uncertain if this is mass, infection, clot, etc) - this is likely prohibiting your aortic valve from opening appropriately (juarez with fluid shifts from your dialysis) - you are being transfer to the [facility] to be assessed. LFT's noted to be elevated today (new findings) Seen by ID today (just prior to D/C) with recommendations for Qfever, Bartonella, Brucella, Legionella, Chlamydia, T.Whip, Mycoplasma, AFB blood cultures, HIV (this was not done prior to the transfer being done as bed became available simultaneously with these recommendations). Pending Studies at Discharge: Yes Studies:: GGT, hepatitis panel, alk. phos isoenzymes, CMV, procalcitonin, ESR, CRP, EBV Stand-Alone Forms: My [facility] Skilled Items Patient informed of condition?: Yes DNR: No Discharge Level of Care: Other Communicable Disease: No Discharge Prognosis: Stable Lines: Peripheral IV Urinary Catheter: No Medications and DC Order Prescriptions: New levothyroxine [Synthroid] 175 mcg Tablet 175 mcg PO DAILYBB Qty: 30 RF: 0 meropenem 500 mg Recon Soln 500 mg Not Applicable UD Qty: 10 RF: 0 daptomycin [Cubicin] 500 mg Recon Soln 500 mg Not Applicable UD Qty: 10 RF: 0 Continued psyllium husk [Metamucil] 0.4 gram capsule 1.6 g PO HS RF: 0 prochlorperazine maleate [Compazine] 10 mg tablet 10 mg PO Q6H PRN (Reason: Nausea) RF: 0 Renal Vitamin 0.8 mg Tablet 1 tab PO QAM RF: 0 pantoprazole [Protonix] 40 mg tablet,delayed release (DR/EC) 40 mg PO QAM RF: 0 pregabalin 75 mg capsule 75 mg PO QAM RF: 0 pregabalin 75 mg capsule 150 mg PO HS RF: 0 docusate sodium [Colace] 100 mg capsule 100 mg PO BID RF: 0 cholecalciferol (vitamin D3) [Vitamin D3] 1,000 unit Tablet 1,000 unit PO QAM RF: 0 Velphoro 500 mg Tablet,Chewable 500 mg PO TIDM RF: 0 Combigan 0.2-0.5 % Drops 1 drp OPL BID RF: 0 Discontinued atorvastatin 40 mg tablet 40 mg PO HS RF: 0 levothyroxine 175 mcg tablet 175 mcg PO Q2D RF: 0 levothyroxine 150 mcg tablet 150 mcg PO Q2D RF: 0 dicloxacillin 500 mg capsule 500 mg PO BID RF: 0 aspirin 81 mg Tablet,Delayed Release (Dr/Ec) 81 mg PO QAM RF: 0 hydrocodone-acetaminophen 5-325 mg tablet 1 tab PO Q4H PRN (Reason: pain) Qty: 20 RF: 0 Discharge Orders: Discharge Order (Routine); Ordered 03/06/21 Ordered By: Gloria Fairbanks/Other Patient Handouts: High Blood Sugar (Hyperglycemia), 5 Steps for Eating Healthier, Exercise: Why Fitness Matters, Type 2 Diabetes Admission Data Admit Date/Time: 03/03/21 18:11 Attending Provider: Rosalia Turner Admit Provider: Matthieu Huber Primary Care Provider: Berny Shrestha Other Providers: Jv Olmstead ; Shant Kumar ; Wagner Person ; [facility] ; Toro Matthew ; Chavez Norris ; Rashad King I. ; Nikolas Borges II ; Minnie Dykes ; Lee Camejo ; Gerard Miller Supervising Physician Co-Signing Physician Notes PA Supervision Note: I personally saw and examined the patient. I verified all yo points and agree with DEBBIE Banks with the following exceptions and/or additions: S-Pt feeling ok, denies CPm SOB, lightheadedness, abd pain. Awaiting transfer to [facility] for further eval of large AV mass, possible IE but BCxs remain no growth. O- Vitals reviewed Gen: [AAOx3, NAD] HEENT: [anicteric sclerae, EOMI] A/P-51 yo male here with syncope secondary to hypotension, AI in setting of new finding of large AV mass on bioprosthetic valve. Transfer to [facility] today Coding Level of Care Code D/C DAY MANAGEMENT >30 MINS Diagnoses Syncope R55 Prosthetic valve endocarditis T82.6XXA; I38 Hypothyroidism E03.9 Elevated troponin I level R77.8 CKD (chronic kidney disease), stage V N18.5 DM type 2 (diabetes mellitus, type 2) E11.9 Thrombocytopenia D69.6 Rectal cancer C20 Pleural effusion J90 Anemia D64.9 Transaminitis R74.01
[2021-03-06 16:52] VITALS: BP 121/76; TEMP 98.2; O2SAT 95
[2021-03-06] MEDS: MEROPENEM 500 MG in SYRINGE 0 ML IV SCH (17:10)
[2021-03-06 17:41] VITALS: PULSE 83
[2021-03-08 14:41] LABS: CMV IgM Antibody <30.00 AU/mL; Epstein Barr Virus Early Ag Ab <9.00 U/mL; Hepatitis A Antibody IgM NON-REACTIVE (NON-REACTIVE); Hepatitis B Core Antibody IgM NON-REACTIVE (NON-REACTIVE)
== END 2021-03-06 18:42 | disposition short-term general hospital (02) | DRG 314 ==
LOC: ED 13:52 → EDINP 18:11 → SUATTDRO 18:11 → 2S 22:16